=== PATIENT | female | born 1980 | race Caucasian/White ===

== ENCOUNTER 2023-08-09 20:03 | Outpatient (REF) | payer BC, SELFPAY ==
[2023-08-15 14:09] LABS: Age Gdln ACOG Testing Note (.); HPV Aptima Negative (Negative); IGP, Aptima HPV, rfx 16/18,45 Note (.)
== END 2023-08-09 20:04 | disposition home or self-care (01) ==
LOC: LAB 20:03
PROVIDERS: Visit Provider Physician Assistant
DX: Z01.419 Encounter for gynecological examination (general) (routine) without abnormal findings (principal)
CPT/HCPCS: 87624; G0145

== ENCOUNTER 2024-08-11 22:06 | Outpatient (REF) | payer OTHER, SELFPAY ==
--- OUTSIDE RECORDS SUMMARY | 2024-08-11 22:11 | XMS_ITS | CCD ---
Author Organization [facility] Care Team Providers Care Laborer Concrete Plant Name Role Phone HELEN, DR BURNS Admitting Unavailable HELEN, DR BURNS Attending Unavailable HELEN, DR BURNS Consulting Unavailable HELEN, DR BURNS Admitting Unavailable HELEN, DR BURNS Attending Unavailable SKIE, GASTON Admitting Unavailable SKIE, GASTON Attending Unavailable SKIE, GASTON Attending Unavailable SKIE, GASTON Attending Unavailable SKIE, GASTON Attending Unavailable SKIE, GASTON Attending Unavailable Defrance Junior FISH Primary Care Provider Junior Quintanilla MD Primary Care Provider JUNIOR QUINTANILLA Referring Unavailable DEFRANCE, JUNIOR Chatterjee Primary Care Unavailable RAMBASEK, ABY Contreras Referring Unavailable DEFRANCE, JUNIOR Chatterjee Primary Care Unavailable DEFRANCE, JUNIOR Chatterjee Referring Unavailable DEFRANCE, JUNIOR Chatterjee Primary Care Unavailable SALMONKIYA WATT Referring Unavailable DEFRANCE, JUNIOR Chatterjee Primary Care Unavailable DEFRANCE, JUNIOR Chatterjee Primary Care Unavailable CANCINOCRICKET Giles Attending Unavailable EMILBASEKABY Referring Unavailable DEFRANCEJUNIOR Primary Care Unavailable DEFRANCEJUNIOR Referring Unavailable DEFRANCE, JUNIOR Chatterjee Primary Care Unavailable RAMBASEK, ABY Contreras Referring Unavailable DEFRANCE, JUNIOR Chatterjee Primary Care Unavailable DEFRANCEJUNIOR Referring Unavailable DEFRANCE, JUNIOR Chatterjee Primary Care Unavailable DEFRANCE, JUNIOR Chatterjee Referring Unavailable DEFRANCE, JUNIOR Chatterjee Primary Care Unavailable RAMBASEK, ABY Contreras Referring Unavailable DEFRANCE, JUNIOR Chatterjee Primary Care Unavailable RAMBASEK, ABY Contreras Referring Unavailable DEFRANCE, JUNIOR Chatterjee Primary Care Unavailable RAMBASEK, ABY Contreras Referring Unavailable DEFRANCE, JUNIOR Chatterjee Primary Care Unavailable RAMBASEK, ABY Contreras Referring Unavailable DEFRANCE, JUNIOR Chatterjee Primary Care Unavailable RAMBASEK, ABY Contreras Referring Unavailable DEFRANCE, JUNIOR Chatterjee Primary Care Unavailable RAMBASEK, ABY Contreras Referring Unavailable DEFRANCE, JUNIOR Chatterjee Primary Care Unavailable Defrance Junior FISH Primary Care Provider [phone] YESSI, JUNIOR Chatterjee Attending Unavailable DEFRANCE, JUNIOR Chatterjee Referring Unavailable DEFRANCE, JUNIOR Chatterjee Primary Care Unavailable YOLY, REHAB Attending Unavailable DEFRANCE, JUNIOR Chatterjee Referring Unavailable DEFRANCE, JUNIOR Chatterjee Primary Care Unavailable DEFRANCE, JUNIOR Chatterjee Attending Unavailable DEFRANCE, JUNIOR Chatterjee Referring Unavailable DEFRANCE, JUNIOR Chatterjee Primary Care Unavailable DEFRANCE, JUNIOR Chatterjee Attending Unavailable DEFRANCE, JUNIOR Chatterjee Referring Unavailable DEFRANCE, JUNIOR Chatterjee Primary Care Unavailable DEFRANCE, JUNIOR Chatterjee Attending Unavailable DEFRANCE, JUNIOR Chatterjee Referring Unavailable DEFRANCE, JUNIOR Chatterjee Primary Care Unavailable WEDNI SKAGGS Attending Unavailable DEFRANCE, JUNIOR Chatterjee Referring Unavailable DEFRANCE, JUNIOR Chatterjee Primary Care Unavailable KIYA SALMON Attending Unavailable DEFRANCE, JUNIOR Chatterjee Referring Unavailable DEFRANCE, JUNIOR Chatterjee Primary Care Unavailable DEFRANCE, JUNIOR Chatterjee Attending Unavailable DEFRANCE, JUNIOR Chatterjee Referring Unavailable DEFRANCE, JUNIOR Chatterjee Primary Care Unavailable RAMBASEK, ABY Contreras Attending Unavailable RICKLEILA Attending Unavailable RAMBASEK, ABY Contreras Attending Unavailable RAMBASEK, ABY Contreras Attending Unavailable RAMBASEK, ABY Contreras Attending Unavailable RAMBASEK, ABY Contreras Attending Unavailable RAMBASEK, ABY Contrreas Attending Unavailable RAMBASEK, ABY Contreras Attending Unavailable RAMBASEK, ABY Contreras Attending Unavailable RAMBASEK, ABY Contreras Attending Unavailable Allergies Allergy Classification Reported Allergen(s) Allergy Type Date of Onset Reaction(s) Facility (14 sources) penicillAMINE; Translations: [PENICILLAMINE] Drug Allergy 2 Unknown [facility] Repository (1 source) penicillAMINE; Translations: [PENICILLAMINE (BULK)] Drug Allergy 2 [facility] Repository (15 sources) Penicillins; Translations: [PENICILLINS] Drug Intolerance 6 Unknown [facility] (4 sources) Penicillins Propensity to adverse reactions to drug 6 [facility] Medications Current Medications Medication Drug Class(es) Dates Sig (Normalized) Sig (Original) cefdinir 300 mg oral capsule (1 source) Cephalosporin Antibacterial Start: 07-11-2023 End: 07-31-2023 take 1 capsule by mouth in the morning, then take 1 capsule by mouth at bedtime cefDINIR (OMNICEF) 300 mg capsule Take 1 capsule (300 mg total) by mouth in the morning and 1 capsule (300 mg total) before bedtime. Do all this for 20 days. 20 capsule 1 07/11/2023 07/31/2023 Active cetirizine hydrochloride 10 mg oral tablet (17 sources) Histamine-1 Receptor Antagonist Start: 11-12-2023 take 1 tablet by mouth in the morning, then take 1 tablet by mouth at bedtime cetirizine (ZyrTEC) 10 mg tablet Take 1 tablet (10 mg total) by mouth in the morning and 1 tablet (10 mg total) before bedtime. 60 tablet 5 11/12/2023 Active Start: 12-26-2022 take 2 tablets by mo uth in the morning cetirizine (ZyrTEC) 10 MG tablet Indications: Chronic idiopathic urticaria Take 2 tablets (20 mg) by mouth in the morning and 2 tablets (20 mg) before bedtime. 120 tablet 11 07/19/2023 Active cycloSPORINE 25 mg oral capsule (19 sources) Calcineurin Inhibitor Immunosuppressant Start: 07-12-2023 End: 08-08-2023 take 3 capsules by mouth once daily in the morning cycloSPORINE modified (NEOral) 25 MG capsule Indications: Chronic idiopathic urticaria , Encounter for fdc current cyclosporin A therapy take 3 capsules by mouth every morning then 3 capsules BEFORE BEDTIME 84 capsule 1 08/08/2023 Active Start: 06-19-2023 take 2 capsules by m outh in the morning, then take 2 capsules by mouth at bedtime cycloSPORINE modified (NEORAL) 25 mg capsule Take 2 capsules (50 mg total) by mouth in the morning and 2 capsules (50 mg total) before bedtime. 06/19/2023 Active Start: 12-30-2022 End: 06-16-2024 take 1 capsule by mouth once daily cycloSPORINE (SandIMMUNE) 25 MG capsule Indications: Chronic idiopathic urticaria Take 1 capsule (25 mg) by mouth Daily 16 capsule 06/16/2024 Active [id number] 0.3 ml EPINEPHrine 1 mg/ml auto-injector (15 sources) alpha-Adrenergic Agonist, beta-Adrenergic Agonist, Catecholamine Start: 10-05-2023 EPINEPHrine (EPIP EN) 0.3 mg/0.3 mL auto-injector Indications: Chronic idiopathic urticaria Inject 0.3 mL (0.3 mg total) into the appropriate muscle as needed (anaphylaxis). 2 each 1 10/05/2023 Active Start: 12-26-2022 inject 0.3 mg by int ramuscular injection every twenty-four hours as needed EPINEPHrine (Epipen) 0.3 MG/0.3ML injection syringe Inject 0.3 mg into the shoulder, thigh, or buttocks Daily as needed 12/26/2022 Active Start: 12-26-2022 End: 10-02-2023 EPINEPHrine (EPIPEN) 0.3 mg/ 0.3 mL auto-injector Indications: Chronic idiopathic urticaria Inject 0.3 mL (0.3 mg total) into the appropriate muscle as needed (anaphylaxis). 2 each 1 12/26/2022 10/02/2023 Discontinued (Reorder) famotidine 20 mg oral tablet (10 sources) Histamine-2 Receptor Antagonist Start: 11-12-2023 take 1 tablet by mouth in the morning, then take 1 tablet by mouth at bedtime famotidine (PEPCID) 20 mg tablet Take 1 tablet (20 mg total) by mouth in the morning and 1 tablet (20 mg total) before bedtime. 60 tablet 1 11/12/2023 Active Start: 10-31-2023 End: 10-30-2024 take 2 tablets by mouth in the morning famotidine (Pepcid AC) 10 MG tablet Indications: Gastroesophageal reflux disease without esophagitis Take 2 tablets (20 mg) by mouth in the morning and 2 tablets (20 mg) before bedtime. 120 tablet 11 10/31/2023 10/30/2024 Active Start: 12-15-2022 End: 07-11-2023 take 1 tablet by mouth in the morning, then take 1 tablet by mouth at bedtime famotidine (PEPCID) 20 mg tablet Indications: Chronic idiopathic urticaria Take 1 tablet (20 mg total) by mouth in the morning and 1 tablet (20 mg total) before bedtime. 180 tablet 1 12/15/2022 07/11/2023 Discontinued (Alternate therapy) hydrOXYzine pamoate 25 mg oral capsule (9 sources) Antihistamine Start: 10-31-2023 take 1 capsule by mouth every six hours hydrOXYzine pamoate (Vistaril) 25 MG capsule Indications: Chronic idiopathic urticaria Take 1 capsule (25 mg) by mouth every 6 (six) hours if needed for itching for up to 10 days 30 capsule 10/31/2023 Active End: 05-23-2024 take 1 tablet by mouth three times daily as needed hydrOXYzine (ATARAX) 25 mg tablet Take 1 tablet (25 mg total) by mouth 3 (three) times a day as needed for itching. 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 90 tablet 3 02/25/2024 Active Start: 09-04-2023 take 1 tablet by alejandra th in the morning levothyroxine (SYNTHROID, LEVOTHROID) 25 MCG tablet Indications: Randolph's disease Take 1 tablet (25 mcg total) by mouth in the morning. 30 tablet 11 09/04/2023 Active 1 ml medroxyPROGESTERone acetate 150 mg/ml injection (20 sources) Progestin Start: 02-01-2024 End: 07-18-2024 inject 1 dose by intramuscular injection once 150 mg, Intramuscular, at 150 mL/hr, Administer over 84 Days, Once, On Sun02/01/24 at 0945, For 1 dose Start: 08-01-2023 End: 04-25-2025 medroxyPROGESTERone (Depo-Pr overa) 150 MG/ML injection Indications: Depo-Provera contraceptive status Inject 1 mL (150 mg) into the shoulder, thigh, or buttocks every 3 (three) months 1 mL 3 04/25/2024 04/25/2025 Active Start: 12-29-2022 End: 07-18-2024 medroxyPROGESTERone (Depo-Pr overa) injection 150 mg Start: 06-26-2017 medroxyPROGEST ERone (DEPO-PROVERA) 150 mg/mL syringe 0 06/26/2017 Active 1 ml omalizumab 150 mg/ml prefilled syringe (17 sources) Anti-IgE Start: 12-25-2023 omalizumab (XO LAIR) 150 mg/mL syringe Indications: Chronic idiopathic urticaria INJECT 2 SYRINGES UNDER THE SKIN EVERY 4 WEEKS 2 mL 11 12/25/2023 Active Start: 12-26-2022 omalizumab (Xo lair) 150 MG/ML injection Inject 300 mg under the skin every 28 (twenty-eight) days. 12/26/2022 Active Start: 12-26-2022 ondansetron 4 mg disintegrating oral tablet (1 source) Serotonin-3 Receptor Antagonist Start: 01-15-2024 take 1 tablet by mouth every eight hours as needed for nausea and vomiting ondansetron ODT (ZOFRAN ODT) 4 mg disintegrating tablet Dissolve 1 tablet (4 mg total) on tongue every 8 (eight) hours as needed for nausea or vomiting. 10 tablet 1 01/15/2024 Active potassium chloride 20 meq powder for oral solution (1 source) Start: 11-12-2023 take 1 dose by mouth in the morning potassium chloride (KLOR-CON) 20 mEq packet Take 1 packet (20 mEq total) by mouth in the morning and 1 packet (20 mEq total) before bedtime. 60 packet 5 11/12/2023 Active sertraline 100 mg oral tablet (1 source) Serotonin Reuptake Inhibitor Start: 01-15-2024 take 1 tablet by mouth in the morning sertraline (ZOLOFT) 100 mg tablet Take 1 tablet (100 mg total) by mouth in the morning. 30 tablet 11 01/15/2024 Active valACYclovir 500 mg oral tablet (17 sources) Herpesvirus Nucleoside Analog DNA Polymerase Inhibitor, Herpes Simplex Virus Nucleoside Analog DNA Polymerase Inhibitor, Herpes Zoster Virus Nucleoside Analog DNA Polymerase Inhibitor Start: 08-01-2023 End: 07-31-2024 take 1 tablet by mouth in the morning valACYclovir (Valtrex) 500 MG tablet Indications: Herpes, vulvar Take 1 tablet (500 mg) by mouth in the morning. 30 tablet 11 08/01/2023 07/31/2024 Active valACYclovir (VA LTREX) 500 mg tablet Take 1 tablet (500 mg total) by mouth as needed. 0 Active Completed/Discontinued Medications Medication Drug Class(es) Dates Sig (Normalized) Sig (Original) 12 hr buPROPion hydrochloride 150 mg extended release oral tablet (1 source) Aminoketone Start: 06-27-2022 End: 07-11-2023 take 1 tablet by mouth every twelve hours in the morning, then take 1 tablet by mouth at bedtime buPROPion SR (WELLBUTRIN SR) 150 mg 12 hr tablet Take 1 tablet (150 mg total) by mouth in the morning and 1 tablet (150 mg total) before bedtime. 180 tablet 3 06/27/2022 07/11/2023 Discontinued (Alternate therapy) montelukast 10 mg oral tablet (1 source) Leukotriene Receptor Antagonist Start: 12-15-2022 End: 07-11-2023 take 1 tablet by mouth once daily montelukast (SINGULAIR) 10 mg tablet Indications: Chronic idiopathic urticaria Take 1 tablet (10 mg total) by mouth nightly. 90 tablet 1 12/15/2022 07/11/2023 Discontinued (Alternate therapy) Problems Active Problems Problem Classification Problem Date Documented Date Episodic/Chronic Allergic reactions (12 sources) Chronic idiopathic urticaria; Translations: [Idiopathic urticaria] Onset: 07-11-2023 08-02-2023 Episodic Anxiety disorders (4 sources) Anxiety; Translations: [Anxiety disorder, unspecified] Onset: 11-11-2023 05-23-2024 Chronic Conditions associated with dizziness or vertigo (1 source) Conditions associated with dizziness or vertigo Onset: 11-11-2023 Contraceptive and procreative management (3 sources) Contraception ; Translations: [Encounter for surveillance of injectable contraceptive] 04-25-2024 Episodic Immunizations and screening for infectious disease (1 source) Encounter for screening for human papillomavirus (HPV); Translations: [ENC SCREENING HUMAN PAPILLOMAVIRUS] Onset: 07-09-2022 Episodic Other aftercare (1 source) Drug therapy status; Translations: [Encounter for fdc current cyclosporin A therapy] 08-07-2023 Episodic Other injuries and conditions due to external causes (2 sources) Other specified injuries of right wrist, hand and finger(s), subsequent encounter; Translations: [Other specified injuries of right wrist, hand and finger(s), subsequent encounter] Onset: 08-09-2022 Episodic Other screening for suspected conditions (not mental disorders or infectious disease) (5 sources) Encounter for screening for malignant neoplasm of cervix; Translations: [Patient encounter status] Onset: 07-05-2022 Episodic Thyroid disorders (5 sources) Randolph thyroiditis; Translations: [Autoimmune thyroiditis] Onset: 11-06-2023 09-04-2023 Chronic Unclassified (1 source) Routine Check up Onset: 05-23-2024 Unclassified (1 source) Thyroid Problem Onset: 08-27-2023 Unclassified (1 source) Sinus Problem Onset: 07-11-2023 Past or Other Problems Problem Classification Problem Date Documented Da te Episodic/Chronic Conditions associated with dizziness or vertigo (1 source) Dizziness and giddiness; Translations: [Dizziness and giddiness] Onset: 11-11-2023 Episodic Fluid and electrolyte disorders (1 source) Hypokalemia; Translations: [Hypokalemia] Onset: 11-11-2023 Episodic Mood disorders (4 sources) Mood disorders Onset: 07-11-2023 Resolved: 05-23-2024 07-11-2023 Other aftercare (1 source) Other fdc (current) drug therapy; Translations: [Other fdc (current) drug therapy] Onset: 09-25-2023 Episodic Other ear and sense organ disorders (1 source) Ear problem Onset: 07-11-2023 Episodic Other lower respiratory disease (1 source) Shortness of breath; Translations: [Shortness of breath] Onset: 11-11-2023 Episodic Other non-traumatic joint disorders (2 sources) Other instability, right wrist; Translations: [Other instability, right wrist] Onset: 03-15-2022 Episodic Other upper respiratory disease (2 sources) Dysphonia; Translations: [Dysphonia] Onset: 11-12-2023 Episodic Other upper respiratory disease (1 source) Other diseases of pharynx; Translations: [Other diseases of pharynx] Onset: 11-11-2023 Episodic Other upper respiratory disease (2 sources) Dysphonia; Translations: [Dysphonia] Onset: 12-10-2023 05-23-2024 Episodic Other upper respiratory infections (2 sources) Other acute sinusitis; Translations: [Acute sinusitis] Onset: 07-11-2023 07-11-2023 Episodic Otitis media and related conditions (2 sources) Acute and subacute allergic otitis media (mucoid) (sanguinous) (serous), right ear; Translations: [Acute mucoid otitis media] Onset: 07-11-2023 07-11-2023 Episodic Spondylosis; intervertebral disc disorders; other back problems (2 sources) Cervicalgia; Translations: [Cervicalgia] Onset: 11-12-2023 Episodic Unclassified (4 sources) Onset: 12-26-2018 12-26-2018 Results Test Name Value Interpretation Reference Range Facility HCG ( test) Ql (U)o n 04-25-2024 Interpretation and review of laboratory results Normal [facility] Preg Test, Ur Negative [facility] COMPREHENSIVE METABOLIC PANE Salazar 04-18-2024 Albumin [Mass/Vol] 4.3 g/dL Normal 3.2-5.3 [facility] Comment on above: Performed By: #### Felisa SHIN, #### [facility] ([id number]) [address] [facility] [address] [place] [address] #### 3520-4 #### [facility] ([id number]) [address] [place] [address]645 ALP [Catalytic activity/Vol] 55 U/L Normal 39-130 [facility] Comment on above: Performed By: #### Felisa SHIN, #### [facility] ([id number]) [address] [facility] [address] [place] [address] #### 3520-4 #### [facility] ([id number]) [address] [place] [address] 37540 ALT [Catalytic activity/Vol] 13 U/L Normal 0-31 [facility] Comment on above: Performed By: #### Felisa SHIN, #### [facility] ([id number]) [address] [place] [address] [address] [place] [address] #### 3520-4 #### [facility] ([id number]) [address] [place] [address] 25551 Anion gap [Moles/Vol] 10 mmol/L Normal 5-15 [facility] Comment on above: Performed By: #### Felisa SHIN, 68418-4 #### [facility] ([id number]) [address] [place] [address] [address] [place] [address] #### 3520-4 #### [facility] ([id number]) [address] [place] [address] 14902 AST [Catalytic activity/Vol] 17 U/L Normal 0-41 [facility] Comment on above: Performed By: #### Felisa SHIN, 17581-3 #### [facility] ([id number]) [address] [facility], [address] [place] [address] #### 3520-4 #### [facility] ([id number]) [address] [place] [address] 72968 Bilirubin [Mass/Vol] 0.5 mg/dL Normal 0.3-1.2 [facility] Comment on above: Performed By: #### Felisa SHIN, 21682-0 #### [facility] ([id number]) [address] [facility], [address] [place] [address] #### 3520-4 #### [facility] ([id number]) [address] [place] [address] 22501 Calcium [Mass/Vol] 9.1 mg/dL Normal 8.5-10.5 [facility] Comment on above: Performed By: #### Felisa SHIN, 68133-3 #### [facility] ([id number]) [address] [facility], [address] [place] [address] #### 3520-4 #### [facility] ([id number]) [address] [place] [address] 38781 Chloride [Moles/Vol] 108 mmol/L Normal 98-109 [facility] Comment on above: Performed By: #### Felisa SHIN, 43357-0 #### [facility] ([id number]) [address] [facility], [address] [place] [address] #### 3520-4 #### [facility] ([id number]) [address] [place] [address] CO2 [Moles/Vol] 25 mmol/L Normal 22-32 [facility] Comment on above: Performed By: #### Felisa SHIN, 44506-1 #### [facility] ([id number]) [address], [address] [place] [address] #### 3520-4 #### [facility] ([id number]) [address] [place] [address]245 Creatinine [Mass/Vol] 0.76 mg/dL Normal 0.40-1.00 [facility] Comment on above: Result Comment: METH OD TRACEABLE TO IDMS STANDARD Performed By: #### Felisa SHIN, #### [facility] ([id number]) [address] [facility], [address] [place] [address] #### 3520-4 #### [facility] ([id number]) [address] [place] [address] 29647 eGFR (CKD-EPI) NON-RACE DEPENDENT >90 Normal >59 [facility] Comment on above: Result Comment: Reported eGFR is based on the CKD-EPI 2020 equation that does not use a race coefficient. Performed By: #### Felisa SHIN, #### [facility] ([id number]) [address] [facility], [address] [place] [address] #### 3520-4 #### [facility] ([id number]) [address] [place] [address] 42220 Glucose [Mass/Vol] 75 mg/dL Normal 65-99 [facility] Comment on above: Performed By: #### Felisa SHIN, 65231-7 #### [facility] ([id number]) [address], [address] [place] [address] #### 3520-4 #### [facility] ([id number]) [address] [place] [address] 21496 Potassium [Moles/Vol] 3.4 mmol/L Low 3.5-5.0 [facility] Comment on above: Performed By: #### Felisa SHIN, 85285-2 #### [facility] ([id number]) [address], [address] [place] [address] #### 3520-4 #### [facility] ([id number]) [address] [place] [address] 76630 Protein [Mass/Vol] 6.5 g/dL Normal 6.0-8.0 [facility] Comment on above: Performed By: #### Felisa SHIN, #### [facility] ([id number]) [address] [facility], [address] [place] [address] #### 3520-4 #### [facility] ([id number]) [address] [place] [address] 55182 Sodium [Moles/Vol] 143 mmol/L Normal 134-146 [facility] Comment on above: Performed By: #### Felisa SHIN, #### [facility] ([id number]) [address] [facility], [address] [place] [address] #### 3520-4 #### [facility] ([id number]) [address] [place] [address] 66356 Urea nitrogen [Mass/Vol] 15 mg/dL Normal 5-23 [facility] Comment on above: Performed By: #### Felisa SHIN, #### [facility] ([id number]) [address], [address] [place] [address] #### 3520-4 #### [facility] ([id number]) [address] [place] [address]71 COMPREHENSIVE METABOLIC PANE Salazar 02-15-2024 Albumin [Mass/Vol] 4.4 g/dL Normal 3.2-5.3 [facility] Comment on above: Performed By: #### C KIP, 02644-6 #### [facility] ([id number]) [address], [address] [place] [address] #### 3520-4 #### [facility] ([id number]) [address] [place] [address] 73964 ALP [Catalytic activity/Vol] 52 U/L Normal 39-130 [facility] Comment on above: Performed By: #### Felisa SHIN, 08948-3 #### [facility] ([id number]) [address] [facility], [address] [place] [address] #### 3520-4 #### [facility] ([id number]) [address] [place] [address] 13318 ALT [Catalytic activity/Vol] 29 U/L Normal 0-31 [facility] Comment on above: Performed By: #### Felisa SHIN, 95955-3 #### [facility] ([id number]) [address] [facility], [address] [place] [address] #### 3520-4 #### [facility] ([id number]) [address] [place] [address] 21071 Anion gap [Moles/Vol] 11 mmol/L Normal 5-15 [facility] Comment on above: Performed By: #### Felisa SHIN, 02412-8 #### [facility] ([id number]) [address] [place] [address] #### 3520-4 #### [facility] ([id number]) [address] [place] [address] 29655 AST [Catalytic activity/Vol] 26 U/L Normal 0-41 [facility] Comment on above: Performed By: #### Felisa SHIN, 18777-9 #### [facility] ([id number]) [address] [facility], [address] [place] [address] #### 3520-4 #### [facility] ([id number]) [address] [place] [address] 50393 Bilirubin [Mass/Vol] 0.6 mg/dL Normal 0.3-1.2 [facility] Comment on above: Performed By: #### Felisa SHIN, 61934-3 #### [facility] ([id number]) [address] [facility], [address] [place] [address] #### 3520-4 #### [facility] ([id number]) [address] [place] [address] 44027 Calcium [Mass/Vol] 9.4 mg/dL Normal 8.5-10.5 [facility] Comment on above: Performed By: #### Felisa SHIN, #### [facility] ([id number]) [address] [facility], [address] [place] [address] #### 3520-4 #### [facility] ([id number]) [address] [place] [address] 72336 Chloride [Moles/Vol] 108 mmol/L Normal 98-109 [facility] Comment on above: Performed By: #### Felisa SHIN, #### [facility] ([id number]) [address] [facility] [facility], [address] [place] [address] #### 3520-4 #### [facility] ([id number]) [address] [place] [address] 38075 CO2 [Moles/Vol] 22 mmol/L Normal 22-32 [facility] Comment on above: Performed By: #### Felisa SHIN, #### [facility] ([id number]) [address] [facility], [address] [place] [address] #### 3520-4 #### [facility] ([id number]) [address] [place] [address] 37098 Creatinine [Mass/Vol] 0.88 mg/dL Normal 0.40-1.00 [facility] Comment on above: Result Comment: METH OD TRACEABLE TO IDMS STANDARD Performed By: #### C KIP, 49744-3 #### [facility] ([id number]) [address] [facility], [address] [place] [address] #### 3520-4 #### [facility] ([id number]) [address] [place] [address] 85825 GFR/1.73 sq M.predicted among non-blacks MDRD (S/P/Bld) [Vol rate/Area] 84 mL/min/{1.73_m2} Normal >59 [facility] Comment on above: Result Comment: Reported eGFR is based on the CKD-EPI 2020 equation that does not use a race coefficient. Performed By: #### C KIP, #### [facility] ([id number]) [address] [place] [address], [address] [place] [address] #### 3520-4 #### [facility] ([id number]) [address] [place] [address] 24848 Glucose [Mass/Vol] 99 mg/dL Normal 65-99 [facility] Comment on above: Performed By: #### Felisa SHIN, #### [facility] ([id number]) [address] [facility], [address] [place] [address] #### 3520-4 #### [facility] ([id number]) [address] [place] [address] 26956 Potassium [Moles/Vol] 3.4 mmol/L Low 3.5-5.0 [facility] Comment on above: Performed By: #### Felisa SHIN, #### [facility] ([id number]) [address] [facility], [address] [place] [address] #### 3520-4 #### [facility] ([id number]) [address] [place] [address] 97502 Protein [Mass/Vol] 6.8 g/dL Normal 6.0-8.0 [facility] Comment on above: Performed By: #### Felisa SHIN, 00948-2 #### [facility] ([id number]) [address] [facility], [address] [place] [address] #### 3520-4 #### [facility] ([id number]) [address] [place] [address] 86642 Sodium [Moles/Vol] 141 mmol/L Normal 134-146 [facility] Comment on above: Performed By: #### Felisa SHIN, 59974-7 #### [facility] ([id number]) [address] [facility], [address] [place] [address] #### 3520-4 #### [facility] ([id number]) [address] [place] [address] 15114 Urea nitrogen [Mass/Vol] 12 mg/dL Normal 5-23 [facility] Comment on above: Performed By: #### Felisa SHIN, 84645-7 #### [facility] ([id number]) [address] [facility] [facility], [address] [place] [address] #### 3520-4 #### [facility] ([id number]) [address] [place] [address] 59009 MAGNESIUMon 02-15-2024 Magnesium [Mass/Vol] 2.1 mg/dL Normal 1.8-2.6 [facility] Comment on above: Performed By: #### Felisa SHIN, 84988-1 #### [facility] ([id number]) [address] [place] [address], [address] [place] [address] #### 3520-4 #### [facility] ([id number]) [address] [place] [address] 06139 cycloSPORINE (Bld) [Mass/Vol ]on 02-15-2024 Cyclosporine, B <25 Low 100 - 400 (Trough) [facility] Comment on above: Result Comment: NOTE ADDITIONAL INFORMATION Target steady-state trough concentrations vary depending on the type of transplant, concomitant immunosuppression, clinical/institutional protocols, and time post-transplant. Results should be interpreted in conjunction with this clinical information and any physical signs/symptoms of rejection/toxicity. Testing performed by Liquid Chromatography-Tandem Mass Spectrometry (LC-MS/MS). This test was developed and its performance characteristics determined by [facility] in a manner consistent with CLIA requirements. This test has not been cleared or approved by the U.S. Food and Drug Administration. Test Performed by: [place] [address] Office Machinery Or Equipment Installer: Angelina Daily Ph.D.; CLIA# [id number] Performed By: #### Felisa SHIN, 24897-6 #### [facility] ([id number]) [address] [place] [address], [address] [place] [address] #### 3520-4 #### [facility] ([id number]) [address] [place] [address] 35513 COMPREHENSIVE METABOLIC PANE Salazar 01-18-2024 Albumin [Mass/Vol] 4.3 g/dL Normal 3.2-5.3 [facility] Comment on above: Performed By: #### Felisa SHIN, 74587-3 #### [facility] ([id number]) [address] [place] [address], [address] [place] [address] #### 3520-4 #### [facility] ([id number]) [address] [place] [address] 88161 ALP [Catalytic activity/Vol] 59 U/L Normal 39-130 [facility] Comment on above: Performed By: #### Felisa SHIN, 13402-4 #### [facility] ([id number]) [address] [address] #### 3520-4 #### [facility] ([id number]) [address] [place] [address] 75008 ALT [Catalytic activity/Vol] 22 U/L Normal 0-31 [facility] Comment on above: Performed By: #### Felisa SHIN, #### [facility] ([id number]) [address] [address] #### 3520-4 #### [facility] ([id number]) [address] [place] [address] 87972 Anion gap [Moles/Vol] 9 mmol/L Normal 5-15 [facility] Comment on above: Performed By: #### Felisa SHIN, 07875-8 #### [facility] ([id number]) [address] [place] [address] #### 3520-4 #### [facility] ([id number]) [address] [place] [address] 15035 AST [Catalytic activity/Vol] 20 U/L Normal 0-41 [facility] Comment on above: Performed By: #### Felisa SHIN, 86532-7 #### [facility] ([id number]) [address] [place] [address] #### 3520-4 #### [facility] ([id number]) [address] [place] [address] 08114 Bilirubin [Mass/Vol] 0.4 mg/dL Normal 0.3-1.2 [facility] Comment on above: Performed By: #### C MP, 34984-1 #### [facility] ([id number]) [address] [facility], [address] [place] [address] #### 3520-4 #### [facility] ([id number]) [address] [place] [address] 49152 Calcium [Mass/Vol] 9.4 mg/dL Normal 8.5-10.5 [facility] Comment on above: Performed By: #### Felisa SHIN, 68588-0 #### [facility] ([id number]) [address] [facility], [address] [place] [address] #### 3520-4 #### [facility] ([id number]) [address] [place] [address] 18756 Chloride [Moles/Vol] 108 mmol/L Normal 98-109 [facility] Comment on above: Performed By: #### Felisa SHIN, 29874-3 #### [facility] ([id number]) [address] [facility] [facility], [address] [place] [address] #### 3520-4 #### [facility] ([id number]) [address] [place] [address] 42000 CO2 [Moles/Vol] 26 mmol/L Normal 22-32 [facility] Comment on above: Performed By: #### Felisa SHIN, 92323-8 #### [facility] ([id number]) [address] [facility], [address] [facility] [address] #### 3520-4 #### [facility] ([id number]) [address] [place] [address] 51417 Creatinine [Mass/Vol] 0.68 mg/dL Normal 0.40-1.00 [facility] Comment on above: Result Comment: METH OD TRACEABLE TO IDMS STANDARD Performed By: #### Felisa SHIN, #### [facility] ([id number]) [address] [facility], [address] [place] [address] #### 3520-4 #### [facility] ([id number]) [address] [place] [address] 80593 eGFR (CKD-EPI) NON-RACE DEPENDENT >90 Normal >59 [facility] Comment on above: Result Comment: Reported eGFR is based on the CKD-EPI 2020 equation that does not use a race coefficient. Performed By: #### Felisa SHIN, 76371-3 #### [facility] ([id number]) [address] [facility] [facility], [address] [place] [address] #### 3520-4 #### [facility] ([id number]) [address] [place] [address] 69915 Glucose [Mass/Vol] 69 mg/dL Normal 65-99 [facility] Comment on above: Performed By: #### Felisa SHIN, 01412-9 #### [facility] ([id number]) [address] [facility], [address] [place] [address] #### 3520-4 #### [facility] ([id number]) [address] [place] [address] 84015 Potassium [Moles/Vol] 3.6 mmol/L Normal 3.5-5.0 [facility] Comment on above: Performed By: #### Felisa SHIN, 72408-8 #### [facility] ([id number]) [address] [facility] [facility], [address] [place] [address] #### 3520-4 #### [facility] ([id number]) [address] [place] [address] 21516 Protein [Mass/Vol] 6.6 g/dL Normal 6.0-8.0 [facility] Comment on above: Performed By: #### Felisa SHIN, 58490-8 #### [facility] ([id number]) [address] [place] [address], [address] [place] [address] #### 3520-4 #### [facility] ([id number]) [address] [place] [address] 93914 Sodium [Moles/Vol] 143 mmol/L Normal 134-146 [facility] Comment on above: Performed By: #### Felisa SHIN, 29842-5 #### [facility] ([id number]) [address] [place] [address], [address] [place] [address] #### 3520-4 #### [facility] ([id number]) [address] [place] [address] 79383 Urea nitrogen [Mass/Vol] 17 mg/dL Normal 5-23 [facility] Comment on above: Performed By: #### Felisa SHIN, 23372-5 #### [facility] ([id number]) [address] [place] [address], [address] [place] [address] #### 3520-4 #### [facility] ([id number]) [address] [place] [address] 74810 MAGNESIUMon 01-18-2024 Magnesium [Mass/Vol] 2.1 mg/dL Normal 1.8-2.6 [facility] Comment on above: Performed By: #### Felisa SHIN, 36888-9 #### [facility] ([id number]) [address] [place] [address], [address] [place] [address] #### 3520-4 #### [facility] ([id number]) [address] [place] [address] 62275 cycloSPORINE (Bld) [Mass/Vol ]on 01-18-2024 Cyclosporine, B <25 Low 100 - 400 (Trough) [facility] Comment on above: Result Comment: NOTE ADDITIONAL INFORMATION Target steady-state trough concentrations vary depending on the type of transplant, concomitant immunosuppression, clinical/institutional protocols, and time post-transplant. Results should be interpreted in conjunction with this clinical information and any physical signs/symptoms of rejection/toxicity. Testing performed by Liquid Chromatography-Tandem Mass Spectrometry (LC-MS/MS). This test was developed and its performance characteristics determined by [facility] in a manner consistent with CLIA requirements. This test has not been cleared or approved by the U.S. Food and Drug Administration. Test Performed by: [facility] [address] [place] [address] Office Machinery Or Equipment Installer: Angelina Daily Ph.D.; CLIA# [id number] Performed By: #### C KIP, 00052-3 #### [facility] ([id number]) [address] [place] [address] #### 3520-4 #### [facility] ([id number]) [address] [place] [address] 395[address]OL[address] P[address] [facility] 12-21-2023 Albumin [Mass/Vol] 4.4 g/dL Normal 3.2-5.3 [facility] Comment on above: Performed By: #### Felisa SHIN, 30350-5 #### [facility] ([id number]) [address] [place] [address] #### 3520-4 #### [facility] ([id number]) [address] [place] [address] 44365 ALP [Catalytic activity/Vol] 55 U/L Normal 39-130 [facility] Comment on above: Performed By: #### Felisa SHIN, 97133-8 #### [facility] ([id number]) [address] [place] [address] #### 3520-4 #### [facility] ([id number]) [address] [place] [address] 41875 ALT [Catalytic activity/Vol] 22 U/L Normal 0-31 [facility] Comment on above: Performed By: #### Felisa SHIN, 89364-5 #### [facility] ([id number]) [address] [facility], [address] [place] [address] #### 3520-4 #### [facility] ([id number]) [address] [place] [address] 91694 Anion gap [Moles/Vol] 9 mmol/L Normal 5-15 [facility] Comment on above: Performed By: #### C KIP, #### [facility] ([id number]) [address] [facility], [address] [place] [address] #### 3520-4 #### [facility] ([id number]) [address] [place] [address] 16997 AST [Catalytic activity/Vol] 24 U/L Normal 0-41 [facility] Comment on above: Performed By: #### Felisa SHIN, #### [facility] ([id number]) [address] [facility], [address] [place] [address] #### 3520-4 #### [facility] ([id number]) [address] [place] [address] 19502 Bilirubin [Mass/Vol] 0.7 mg/dL Normal 0.3-1.2 [facility] Comment on above: Performed By: #### Felisa SHIN, #### [facility] ([id number]) [address] [facility], [address] [place] [address] #### 3520-4 #### [facility] ([id number]) [address] [place] [address] 03805 Calcium [Mass/Vol] 9.6 mg/dL Normal 8.5-10.5 [facility] Comment on above: Performed By: #### Felisa SHIN, #### [facility] ([id number]) [address] [facility], [address] [place] [address] #### 3520-4 #### [facility] ([id number]) [address] [place] [address] 09339 Chloride [Moles/Vol] 107 mmol/L Normal 98-109 [facility] Comment on above: Performed By: #### Felisa SHIN, 70805-5 #### [facility] ([id number]) [address] [facility], [address] [place] [address] #### 3520-4 #### [facility] ([id number]) [address] [place] [address] 37591 CO2 [Moles/Vol] 25 mmol/L Normal 22-32 [facility] Comment on above: Performed By: #### Felisa SHIN, 84348-7 #### [facility] ([id number]) [address] [place] [address], [address] [place] [address] #### 3520-4 #### [facility] ([id number]) [address] [place] [address] 50798 Creatinine [Mass/Vol] 0.82 mg/dL Normal 0.40-1.00 [facility] Comment on above: Result Comment: METH OD TRACEABLE TO IDMS STANDARD Performed By: #### Felisa SHIN, 07125-9 #### [facility] ([id number]) [address] [place] [address], [address] [place] [address] #### 3520-4 #### [facility] ([id number]) [address] [place] [address] 78215 eGFR (CKD-EPI) NON-RACE DEPENDENT >90 Normal >59 [facility] Comment on above: Result Comment: Reported eGFR is based on the CKD-EPI 2020 equation that does not use a race coefficient. Performed By: #### Felisa SHIN, #### [facility] ([id number]) [address] [facility] [facility], [address] [place] [address] #### 3520-4 #### [facility] ([id number]) [address] [place] [address] 01771 Glucose [Mass/Vol] 87 mg/dL Normal 65-99 [facility] Comment on above: Performed By: #### Felisa SHIN, 44738-0 #### [facility] ([id number]) [address] [facility], [address] [place] [address] #### 3520-4 #### [facility] ([id number]) [address] [place] [address] 09770 Potassium [Moles/Vol] 3.3 mmol/L Low 3.5-5.0 [facility] Comment on above: Performed By: #### Felisa SHIN, 47890-1 #### [facility] ([id number]) [address] [facility], [address] [place] [address] #### 3520-4 #### [facility] ([id number]) [address] [place] [address] 31309 Protein [Mass/Vol] 6.8 g/dL Normal 6.0-8.0 [facility] Comment on above: Performed By: #### Felisa SHIN, #### [facility] ([id number]) [address], [address] [place] [address] #### 3520-4 #### [facility] ([id number]) [address] [place] [address] 86834 Sodium [Moles/Vol] 141 mmol/L Normal 134-146 [facility] Comment on above: Performed By: #### Felisa SHIN, #### [facility] ([id number]) [address] [facility], [address] [place] [address] #### 3520-4 #### [facility] ([id number]) [address] [place] [address] 54635 Urea nitrogen [Mass/Vol] 15 mg/dL Normal 5-23 [facility] Comment on above: Performed By: #### Felisa SHIN, 58808-2 #### [facility] ([id number]) [address] [place] [address], [address] [address] #### 3520-4 #### [facility] ([id number]) [address] [place] [address] Cyclosporineon 12-21-2023 cycloSPORINE (Bld) [Mass/Vol] ng/mL Low 50-500 [facility] Comment on above: Result Comment: NOTE Drug concentration below assay detection limit. Please confirm drug regimen and cancel any standing orders for this drug level if the drug has been discontinued. Reference ranges and high/low indicator flags are provided as general guidelines only. The treating physician must determine appropriate target levels/dosing based on the specific clinical situation. Test performed by chemiluminescent immunoassay using vitalclip. Result rechecked. Test Performed By: [place] [address] Overhead Worker: Gary Ohara III #[id number] Performed By: #### Felsia SHIN, 88061-6 #### [facility] ([id number]) [address] [place] [address], [address] [address] #### 3520-4 #### [facility] ([id number]) [address] [place] [address] 67711 MAGNESIUMon 12-21-2023 Magnesium [Mass/Vol] 2.0 mg/dL Normal 1.8-2.6 [facility] Comment on above: Performed By: #### Felisa SHIN, 15523-0 #### [facility] ([id number]) [address] [place] [address], [address] [place] [address] #### 3520-4 #### [facility] ([id number]) [address] [facility], [place] [address] MR BRAIN W WO CONTon 024 MR BRAIN W WO CONT MR BRAIN W WO CONT EXAM:MR BRAIN W WO CONT INDICATION: Headache, chronic, new features or increased frequency. COMPARISON: None. TECHNIQUE: Multiplanar multisequence pre and post contrast MR sequences through the head/brain. CONTRAST: 16mL ProHance IV. BRAIN FINDINGS: Brain Parenchyma: No acute hemorrhage, cerebral edema, or acute infarction. No mass, mass effect, or midline shift. No cerebellar tonsillar ectopia. No brainstem sag or other secondary signs of intracranial hypotension. No empty sella or other secondary signs of elevated intracranial pressure. Ventricles and Sulci: Normal for age. Extra-Axial Spaces: No extra-axial fluid collection. Intracranial Flow-Voids and enhancement: Arterial and venous sinus flow voids appear normal. Large arachnoid granulation within the left transverse sigmoid junction. Orbits: Paranasal Sinuses: Lobular mucosal thickening left maxillary sinus. Nonaggressive mucosal thickening left frontal sinuses, frontoethmoidal recesses, anterior ethmoid air cells. Mastoid Air Cells: Clear. Cranium: Normal. Extracranial Soft Tissues: Normal. IMPRESSION: No acute or subacute cranial abnormalities. No MRI findings to account for the patient's headaches. Approved by Resident Juvencio Steven MD on 11/30/2023 11:18 AM Nya Bernstein have personally reviewed the image(s) and agree with and/or edited the report Finalized by Nya Maynard on 11/30/2023 12:09 PM Normal [facility] MR CERVICAL SPINE WO CONTon 11-30-2023 MR CERVICAL SPINE WO CONT MR CERVICAL SPINE WO CONT MR CERVICAL SPINE WO CONT 11/30/2023 10:08 AM HISTORY: Neck pain. PROTOCOL: Routine MRI cervical spine obtained without contrast. Multisequence, multiplanar imaging was obtained. COMPARISON: None. FINDINGS: Straightening of usual cervical lordosis. Vertebral body heights preserved. No listhesis. No suspicious marrow replacing process. No epidural collection. Paraspinous musculature is unremarkable. Disc desiccation and mild height loss C4-C5 and C5-C6. No abnormal cord signal alteration. Level by level assessment: At C2-C3: No significant herniation, spinal canal or neural foraminal stenosis. At C3-C4: No significant herniation, spinal canal or neural foraminal stenosis. At C4-C5: Disc desiccation and mild disc height loss. No significant disc herniation, spinal canal and neural foraminal stenosis. At C5-C6: Disc desiccation, mild disc height loss. Right central/subarticular disc protrusion mild effacement of the ventral thecal sac minimal flattening of the ventral cord. At C6-C7: No significant herniation, spinal canal or neural foraminal stenosis. At C7-T1: No significant herniation, spinal canal or neural foraminal stenosis. IMPRESSION: Mild discogenic degenerative changes at C4-C5 and C5-C6 without high-grade neural foraminal or spinal canal stenosis. Small right central and subarticular disc protrusion with mild effacement of the ventral thecal sac. Approved by Resident Juvencio Steven MD on 11/30/2023 11:18 AM INya have personally reviewed the image(s) and agree with and/or edited the report Finalized by Nya Maynard on 11/30/2023 4:21 PM Normal [facility] COMPREHENSIVE METABOLIC PANE Salazar 11-23-2023 Albumin [Mass/Vol] 4.5 g/dL Normal 3.2-5.3 [facility] Comment on above: Performed By: #### C KIP, 37272-8 #### [facility] ([id number]) [address] [facility], [address] [place] [address] #### 3520-4 #### [facility] ([id number]) [address] [place] [address] 88452 ALP [Catalytic activity/Vol] 72 U/L Normal 39-130 [facility] Comment on above: Performed By: #### C KIP, 33111-0 #### [facility] ([id number]) [address] [facility], [address] [place] [address] #### 3520-4 #### [facility] ([id number]) [address] [place] [address] 32852 ALT [Catalytic activity/Vol] 25 U/L Normal 0-31 [facility] Comment on above: Performed By: #### Felisa SHIN, 25795-2 #### [facility] ([id number]) [address] [facility], [address] [place] [address] #### 3520-4 #### [facility] ([id number]) [address] [place] [address] 95482 Anion gap [Moles/Vol] 11 mmol/L Normal 5-15 [facility] Comment on above: Performed By: #### Felisa SHIN, #### [facility] ([id number]) [address] [facility], [address] [place] [address] #### 3520-4 #### [facility] ([id number]) [address] [place] [address] 72379 AST [Catalytic activity/Vol] 22 U/L Normal 0-41 [facility] Comment on above: Performed By: #### Felisa SHIN, #### [facility] ([id number]) [address] [facility], [address] [place] [address] #### 3520-4 #### [facility] ([id number]) [address] [place] [address] 81760 Bilirubin [Mass/Vol] 0.5 mg/dL Normal 0.3-1.2 [facility] Comment on above: Performed By: #### Felisa SHIN, #### [facility] ([id number]) [address] [facility], [address] [place] [address] #### 3520-4 #### [facility] ([id number]) [address] [place] [address] 98512 Calcium [Mass/Vol] 9.6 mg/dL Normal 8.5-10.5 [facility] Comment on above: Performed By: #### Felisa SHIN, 54629-6 #### [facility] ([id number]) [address] [facility], [address] [place] [address] #### 3520-4 #### [facility] ([id number]) [address] [place] [address] 35775 Chloride [Moles/Vol] 106 mmol/L Normal 98-109 [facility] Comment on above: Performed By: #### C KIP, 14129-9 #### [facility] ([id number]) [address] [facility], [address] [place] [address] #### 3520-4 #### [facility] ([id number]) [address] [place] [address] 70910 CO2 [Moles/Vol] 24 mmol/L Normal 22-32 [facility] Comment on above: Performed By: #### Felisa SHIN, 00475-1 #### [facility] ([id number]) [address] [facility], [address] [place] [address] #### 3520-4 #### [facility] ([id number]) [address] [place] [address] 36033 Creatinine [Mass/Vol] 0.81 mg/dL Normal 0.40-1.00 [facility] Comment on above: Result Comment: METH OD TRACEABLE TO IDMS STANDARD Performed By: #### Felisa SHIN, 65737-8 #### [facility] ([id number]) [address] [facility], [address] [place] [address] #### 3520-4 #### [facility] ([id number]) [address] [place] [address] 76489 eGFR (CKD-EPI) NON-RACE DEPENDENT >90 Normal >59 [facility] Comment on above: Result Comment: Reported eGFR is based on the CKD-EPI 2020 equation that does not use a race coefficient. Performed By: #### C KIP, 61632-2 #### [facility] ([id number]) [address] [facility], [address] [place] [address] #### 3520-4 #### [facility] ([id number]) [address] [place] [address] 46388 Glucose [Mass/Vol] 92 mg/dL Normal 65-99 [facility] Comment on above: Performed By: #### C KIP, 03883-7 #### [facility] ([id number]) [address] [facility] [address] [place] [address] #### 3520-4 #### [facility] ([id number]) [address] [place] [address] 64572 Potassium [Moles/Vol] 3.9 mmol/L Normal 3.5-5.0 [facility] Comment on above: Performed By: #### Felisa SHIN, 83495-8 #### [facility] ([id number]) [address] [facility], [address] [place] [address] #### 3520-4 #### [facility] ([id number]) [address] [place] [address] 83191 Protein [Mass/Vol] 7.4 g/dL Normal 6.0-8.0 [facility] Comment on above: Performed By: #### Felisa SHIN, 59121-9 #### [facility] ([id number]) [address] [facility], [address] [place] [address] #### 3520-4 #### [facility] ([id number]) [address] [place] [address] 16391 Sodium [Moles/Vol] 141 mmol/L Normal 134-146 [facility] Comment on above: Performed By: #### Felisa SHIN, 79514-9 #### [facility] ([id number]) [address] [place] [address], [address] [place] [address] #### 3520-4 #### [facility] ([id number]) [address] [place] [address] 22626 Urea nitrogen [Mass/Vol] 17 mg/dL Normal 5-23 [facility] Comment on above: Performed By: #### Felisa SHIN, 45972-8 #### [facility] ([id number]) [address] [facility], [address] [place] [address] #### 3520-4 #### [facility] ([id number]) [address] [place] [address] 78882 Cyclosporineon 11-23-2023 cycloSPORINE (Bld) [Mass/Vol] ng/mL Low 50-500 [facility] Comment on above: Result Comment: NOTE Drug concentration below assay detection limit. Please confirm drug regimen and cancel any standing orders for this drug level if the drug has been discontinued. Reference ranges and high/low indicator flags are provided as general guidelines only. The treating physician must determine appropriate target levels/dosing based on the specific clinical situation. Test performed by chemiluminescent immunoassay using vitalclip. Result rechecked. Test Performed By: [facility] [employer] [address] [place] [address] Overhead Worker: Gary Ohara III #[id number] Performed By: #### Felisa SHIN, 14785-1 #### [facility] ([id number]) [address] [facility], [address] [place] [address] #### 3520-4 #### [facility] ([id number]) [address] [place] [address] 78803 MAGNESIUMon 11-23-2023 Magnesium [Mass/Vol] 2.1 mg/dL Normal 1.8-2.6 [facility] Comment on above: Performed By: #### Felisa SHIN, 85300-9 #### [facility] ([id number]) [address] [facility], [address] [place] [address] #### 3520-4 #### [facility] ([id number]) [address] [place] [address] 03282 BASIC METABOLIC PANLon 11-11 Anion gap [Moles/Vol] 10 mmol/L Normal 5-15 [facility] Comment on above: Performed By: #### Felisa SHIN, 99612-5 #### [facility] ([id number]) [address] [facility], [address] [place] [address] #### 3520-4 #### [facility] ([id number]) [address] [place] [address] 42111 Calcium [Mass/Vol] 9.3 mg/dL Normal 8.5-10.5 [facility] Comment on above: Performed By: #### Felisa SHIN, 82690-0 #### [facility] ([id number]) [address] [facility], [address] [place] [address] #### 3520-4 #### [facility] ([id number]) [address] [place] [address] 42454 Chloride [Moles/Vol] 107 mmol/L Normal 98-109 [facility] Comment on above: Performed By: #### Felisa SHIN, 69660-3 #### [facility] ([id number]) [address] [place] [address] #### 3520-4 #### [facility] ([id number]) [address] [place] [address] 74707 CO2 [Moles/Vol] 21 mmol/L Low 22-32 [facility] Comment on above: Performed By: #### Felisa SHIN, 88052-6 #### [facility] ([id number]) [address] [facility], [address] [place] [address] #### 3520-4 #### [facility] ([id number]) [address] [place] [address] 73046 Creatinine [Mass/Vol] 0.89 mg/dL Normal 0.40-1.00 [facility] Comment on above: Result Comment: METH OD TRACEABLE TO IDMS STANDARD Performed By: #### C KIP, 05873-5 #### [facility] ([id number]) [address] [facility], [address] [place] [address] #### 3520-4 #### [facility] ([id number]) [address] [place] [address] 10792 GFR/1.73 sq M.predicted among non-blacks MDRD (S/P/Bld) [Vol rate/Area] 83 mL/min/{1.73_m2} Normal >59 [facility] Comment on above: Result Comment: Reported eGFR is based on the CKD-EPI 2020 equation that does not use a race coefficient. Performed By: #### C KIP, #### [facility] ([id number]) [address] [facility], [address] [place] [address] #### 3520-4 #### [facility] ([id number]) [address] [place] [address] 75602 Glucose [Mass/Vol] 99 mg/dL Normal 65-99 [facility] Comment on above: Performed By: #### Felisa SHIN, 11522-0 #### [facility] ([id number]) [address] [facility], [address] [place] [address] #### 3520-4 #### [facility] ([id number]) [address] [place] [address] 45682 Potassium [Moles/Vol] 3.1 mmol/L Low 3.5-5.0 [facility] Comment on above: Performed By: #### Feilsa SHIN, #### [facility] ([id number]) [address] [facility], [address] [place] [address] #### 3520-4 #### [facility] ([id number]) [address] [place] [address] 61445 Sodium [Moles/Vol] 138 mmol/L Normal 134-146 [facility] Comment on above: Performed By: #### Felisa SHIN, 10374-1 #### [facility] ([id number]) [address] [facility], [address] [place] [address] #### 3520-4 #### [facility] ([id number]) [address] [place] [address] 25412 Urea nitrogen [Mass/Vol] 21 mg/dL Normal 5-23 [facility] Comment on above: Performed By: #### Felisa SHIN, 94786-8 #### [facility] ([id number]) [address] [facility], [address] [place] [address] #### 3520-4 #### [facility] ([id number]) [address] [place] [address] 88174 CBC AND AUTO DIFFon 11-12-19 24 ABSOLUTE BASOPHIL 0.0 X10E9/L Normal 0.0-0.2 [facility] Comment on above: Performed By: #### Felisa SHIN, 01849-6 #### [facility] ([id number]) [address] [facility], [address] [place] [address] #### 3520-4 #### [facility] ([id number]) [address] [place] [address] 69880 ABSOLUTE NEUTROPHIL 3.6 X10E9/L Normal 1.5-6.6 [facility] Comment on above: Performed By: #### Felisa SHIN, 40969-8 #### [facility] ([id number]) [address] [facility], [address] [place] [address] #### 3520-4 #### [facility] ([id number]) [address] [place] [address] 38110 Basophils/100 WBC (Bld) 0.7 % Normal [facility] Comment on above: Performed By: #### Felisa SHIN, 70298-7 #### [facility] ([id number]) [address] [facility], [address] [place] [address] #### 3520-4 #### [facility] ([id number]) [address] [place] [address] 97651 Eosinophils (Bld) [#/Vol] 0.0 10*3/uL Normal 0.0-0.4 [facility] Comment on above: Performed By: #### Felisa SHIN, 97024-8 #### [facility] ([id number]) [address] [facility] [address] [place] [address] #### 3520-4 #### [facility] ([id number]) [address] [place] [address] 88928 Eosinophils/100 WBC (Bld) 0.0 % Normal [facility] Comment on above: Performed By: #### Felisa SHIN, 12465-8 #### [facility] ([id number]) [address] [facility], [address] [place] [address] #### 3520-4 #### [facility] ([id number]) [address] [place] [address] 74105 Erythrocyte distribution width (RBC) [Ratio] 15.3 % High 11.5-15.0 [facility] Comment on above: Performed By: #### Felisa SHIN, 96065-8 #### [facility] ([id number]) [address] [facility] [address] [place] [address] #### 3520-4 #### [facility] ([id number]) [address] [place] [address] 77627 Hematocrit (Bld) [Volume fraction] 40.6 % Normal 35-47 [facility] Comment on above: Performed By: #### Felisa SHIN, 84760-3 #### [facility] ([id number]) [address], [address] [place] [address] #### 3520-4 #### [facility] ([id number]) [address] [place] [address] 68518 Hemoglobin (Bld) [Mass/Vol] 13.8 g/dL Normal 11.7-15.5 [facility] Comment on above: Performed By: #### Felisa SHIN, 30134-3 #### [facility] ([id number]) [address] [place] [address] #### 3520-4 #### [facility] ([id number]) [address] [place] [address] 06536 Lymphocytes (Bld) [#/Vol] 1.8 10*3/uL Normal 1.0-3.5 [facility] Comment on above: Performed By: #### Felisa SHIN, 89999-8 #### [facility] ([id number]) [address] [place] [address] #### 3520-4 #### [facility] ([id number]) [address] [place] [address] 41720 Lymphocytes/100 WBC (Bld) 29.1 % Normal [facility] Comment on above: Performed By: #### Felisa SHIN, 52512-5 #### [facility] ([id number]) [address] [place] [address] #### 3520-4 #### [facility] ([id number]) [address] [place] [address] 73070 MCH (RBC) [Entitic mass] 27.7 pg Normal 27-34 [facility] Comment on above: Performed By: #### Felisa SHIN, 25978-5 #### [facility] ([id number]) [address] [address] #### 3520-4 #### [facility] ([id number]) [address] [place] [address] 89880 MCHC (RBC) [Mass/Vol] 33.9 g/dL Normal 32-36 [facility] Comment on above: Performed By: #### Felisa SHIN, #### [facility] ([id number]) [address] [address] #### 3520-4 #### [facility] ([id number]) [address] [place] [address] 96968 MCV (RBC) [Entitic vol] 82 fL Normal 80-100 [facility] Comment on above: Performed By: #### Felisa SHIN, #### [facility] ([id number]) [address] [address] #### 3520-4 #### [facility] ([id number]) [address] [place] [address] 27290 Monocytes (Bld) [#/Vol] 0.8 10*3/uL Normal 0-0.9 [facility] Comment on above: Performed By: #### Felisa SHIN, #### [facility] ([id number]) [address] [address] #### 3520-4 #### [facility] ([id number]) [address] [place] [address] 10158 Monocytes/100 WBC (Bld) 12.8 % Normal [facility] Comment on above: Performed By: #### Felisa SHIN, 42340-5 #### [facility] ([id number]) [address] [facility], [address] [place] [address] #### 3520-4 #### [facility] ([id number]) [address] [place] [address] 17907 Neutrophils/100 WBC (Bld) 57.4 % Normal [facility] Comment on above: Performed By: #### Felisa SHIN, 75562-4 #### [facility] ([id number]) [address] [facility], [address] [place] [address] #### 3520-4 #### [facility] ([id number]) [address] [place] [address] 49495 Platelet mean volume (Bld) [Entitic vol] 8.9 fL Normal 7-12 [facility] Comment on above: Performed By: #### Felisa SHIN, 38980-3 #### [facility] ([id number]) [address] [facility], [address] [place] [address] #### 3520-4 #### [facility] ([id number]) [address] [place] [address] 90233 Platelets (Bld) [#/Vol] 255 10*3/uL Normal 150-450 [facility] Comment on above: Performed By: #### Felisa SHIN, 49945-5 #### [facility] ([id number]) [address] [facility], [address] [place] [address] #### 3520-4 #### [facility] ([id number]) [address] [place] [address] 16185 RBC COUNT 4.98 X10E12/L Normal 3.80-5.20 [facility] Comment on above: Performed By: #### Felisa SHIN, 45680-6 #### [facility] ([id number]) [address] [place] [address], [address] [place] [address] #### 3520-4 #### [facility] ([id number]) [address] [place] [address] 52315 WBC (Bld) [#/Vol] 6.3 10*3/uL Normal 4.0-11.0 [facility] Comment on above: Performed By: #### Felisa SHIN, 97051-9 #### [facility] ([id number]) [address] [place] [address], [address] [place] [address] #### 3520-4 #### [facility] ([id number]) [address] [place] [address] 74789 MAGNESIUMon 11-12-2023 Magnesium [Mass/Vol] 2.2 mg/dL Normal 1.8-2.6 [facility] Comment on above: Performed By: #### Felisa SHIN, 94386-7 #### [facility] ([id number]) [address] [place] [address], [address] [place] [address] #### 3520-4 #### [facility] ([id number]) [address] [place] [address] 21072 TSH WITH REFLEXon 11-12-2023 TSH 1.14 uIU/mL Normal 0.49-4.67 [facility] Comment on above: Performed By: #### Felisa SHIN, 85823-9 #### [facility] ([id number]) [address] [place] [address], [address] [place] [address] #### 3520-4 #### [facility] ([id number]) [address] [place] [address] 38256 FREE T4on 11-06-2023 Free T4 [Mass/Vol] 0.77 ng/dL Normal 0.61-1.60 [facility] Comment on above: Performed By: #### Felisa SHIN, 59316-1 #### [facility] ([id number]) [address] [facility], [address] [place] [address] #### 3520-4 #### [facility] ([id number]) [address] [place] [address] 96918 TSH Qnon 11-06-2023 TSH 0.79 uIU/mL Normal 0.49-4.67 [facility] Comment on above: Performed By: #### C MP, 47605-8 #### [facility] ([id number]) [address] [facility], [address] [place] [address] #### 3520-4 #### [facility] ([id number]) [address] [place] [address] 72469 COMPREHENSIVE METABOLIC PANE Salazar 10-26-2023 Albumin [Mass/Vol] 4.6 g/dL Normal 3.2-5.3 [facility] Comment on above: Performed By: #### C MP #### [facility] ([id number]) [address] [facility], [address] [place] [address] #### 3520-4 #### [facility] ([id number]) [address] [place] [address] 98664 ALP [Catalytic activity/Vol] 62 U/L Normal 39-130 [facility] Comment on above: Performed By: #### C MP #### [facility] ([id number]) [address] [facility], [address] [place] [address] #### 3520-4 #### [facility] ([id number]) [address] [place] [address] 40736 ALT [Catalytic activity/Vol] 24 U/L Normal 0-31 [facility] Comment on above: Performed By: #### C MP #### [facility] ([id number]) [address] [facility], [address] [place] [address] #### 3520-4 #### [facility] ([id number]) [address] [place] [address] 74588 Anion gap [Moles/Vol] 9 mmol/L Normal 5-15 [facility] Comment on above: Performed By: #### C MP #### [facility] ([id number]) [address] [facility] [address] [place] [address] #### 3520-4 #### [facility] ([id number]) [address] [place] [address] 67307 AST [Catalytic activity/Vol] 19 U/L Normal 0-41 [facility] Comment on above: Performed By: #### C MP #### [facility] ([id number]) [address] [facility] [address] [place] [address] #### 3520-4 #### [facility] ([id number]) [address] [place] [address] 03149 Bilirubin [Mass/Vol] 0.6 mg/dL Normal 0.3-1.2 [facility] Comment on above: Performed By: #### C MP #### [facility] ([id number]) [facility], [facility] [address] [place] [address] #### 3520-4 #### [facility] ([id number]) [address] [place] [address] 25015 Calcium [Mass/Vol] 9.6 mg/dL Normal 8.5-10.5 [facility] Comment on above: Performed By: #### C MP #### [facility] ([id number]) [address] [facility], [address] [place] [address] #### 3520-4 #### [facility] ([id number]) [address] [place] [address] 70043 Chloride [Moles/Vol] 107 mmol/L Normal 98-109 [facility] Comment on above: Performed By: #### C MP #### [facility] ([id number]) [facility] [address] [place] [address] #### 3520-4 #### [facility] ([id number]) [address] [place] [address] 35219 CO2 [Moles/Vol] 27 mmol/L Normal 22-32 [facility] Comment on above: Performed By: #### C MP #### [facility] ([id number]) [address] [place] [address] #### 3520-4 #### [facility] ([id number]) [address] [place] [address]15 Creatinine [Mass/Vol] 0.83 mg/dL Normal 0.40-1.00 [facility] Comment on above: Result Comment: METH OD TRACEABLE TO IDMS STANDARD Performed By: #### C MP #### [facility] ([id number]) [address] [place] [address] #### 3520-4 #### [facility] ([id number]) [address] [place] [address]39 eGFR (CKD-EPI) NON-RACE DEPENDENT >90 Normal >59 [facility] Comment on above: Result Comment: Reported eGFR is based on the CKD-EPI 2021 equation that does not use a race coefficient. Performed By: #### C MP #### [facility] ([id number]) [address] [place] [address] #### 3520-4 #### [facility] ([id number]) [address] [place] [address] 99360 Glucose [Mass/Vol] 89 mg/dL Normal 65-99 [facility] Comment on above: Performed By: #### C MP #### [facility] ([id number]) [address] [facility] [address] [place] [address] #### 3520-4 #### [facility] ([id number]) [address] [place] [address]696 Potassium [Moles/Vol] 3.8 mmol/L Normal 3.5-5.0 [facility] Comment on above: Performed By: #### C MP #### [facility] ([id number]) [address] [facility], [address] [place] [address] #### 3520-4 #### [facility] ([id number]) [address] [place] [address] 32019 Protein [Mass/Vol] 7.1 g/dL Normal 6.0-8.0 [facility] Comment on above: Performed By: #### C MP #### [facility] ([id number]) [address] [place] [address], [address] [place] [address] #### 3520-4 #### [facility] ([id number]) [address] [place] [address] 42636 Sodium [Moles/Vol] 143 mmol/L Normal 134-146 [facility] Comment on above: Performed By: #### C MP #### [facility] ([id number]) [address] [place] [address], [address] [place] [address] #### 3520-4 #### [facility] ([id number]) [address] [place] [address] 82889 Urea nitrogen [Mass/Vol] 14 mg/dL Normal 5-23 [facility] Comment on above: Performed By: #### C MP #### [facility] ([id number]) [address] [facility], [address] [place] [address] #### 3520-4 #### [facility] ([id number]) [address] [place] [address] Cyclosporineon 10-26-2023 cycloSPORINE (Bld) [Mass/Vol] ng/mL Low 50-500 [facility] Comment on above: Result Comment: NOTE Drug concentration below assay detection limit. Please confirm drug regimen and cancel any standing orders for this drug level if the drug has been discontinued. Reference ranges and high/low indicator flags are provided as general guidelines only. The treating physician must determine appropriate target levels/dosing based on the specific clinical situation. Test performed by chemiluminescent immunoassay using [employer]. Result rechecked. Test Performed By: [place] [address] Overhead Worker: Gary Ohara III #[id number] Performed By: #### C KIP, 82948-4 #### [facility] ([id number]) [address] [place] [address], [address] [address] #### 3520-4 #### [facility] ([id number]) [address] [place] [address] 40910 MAGNESIUMon 10-26-2023 Magnesium [Mass/Vol] 2.1 mg/dL Normal 1.8-2.6 [facility] Comment on above: Performed By: #### C MP #### [facility] ([id number]) [address] [place] [address] #### 3520-4 #### [facility] ([id number]) [address] [place] [address] 06478 COMPREHENSIVE METABOLIC PANE Salazar 09-25-2023 Albumin [Mass/Vol] 4.4 g/dL Normal 3.2-5.3 [facility] Comment on above: Performed By: #### C MP #### [facility] ([id number]) [address] [place] [address], [address] [address] #### 3520-4 #### [facility] ([id number]) [address] [place] [address] 21895 ALP [Catalytic activity/Vol] 64 U/L Normal 39-130 [facility] Comment on above: Performed By: #### C MP #### [facility] ([id number]) [address] [facility], [address] [place] [address] #### 3520-4 #### [facility] ([id number]) [address] [place] [address] 97684 ALT [Catalytic activity/Vol] 21 U/L Normal 0-31 [facility] Comment on above: Performed By: #### C MP #### [facility] ([id number]) [address] [facility], [address] [place] [address] #### 3520-4 #### [facility] ([id number]) [address] [place] [address] 82133 Anion gap [Moles/Vol] 10 mmol/L Normal 5-15 [facility] Comment on above: Performed By: #### C MP #### [facility] ([id number]) [address] [facility], [address] [place] [address] #### 3520-4 #### [facility] ([id number]) [address] [place] [address] 71222 AST [Catalytic activity/Vol] 18 U/L Normal 0-41 [facility] Comment on above: Performed By: #### C MP #### [facility] ([id number]) [address] [facility], [address] [place] [address] #### 3520-4 #### [facility] ([id number]) [address] [place] [address] 59515 Bilirubin [Mass/Vol] 0.5 mg/dL Normal 0.3-1.2 [facility] Comment on above: Performed By: #### C MP #### [facility] ([id number]) [address] [place] [address] [address] [place] [address] #### 3520-4 #### [facility] ([id number]) [address] [place] [address] 95656 Calcium [Mass/Vol] 9.5 mg/dL Normal 8.5-10.5 [facility] Comment on above: Performed By: #### C MP #### [facility] ([id number]) [address] [place] [address] [address] [place] [address] #### 3520-4 #### [facility] ([id number]) [address] [place] [address] 61868 Chloride [Moles/Vol] 107 mmol/L Normal 98-109 [facility] Comment on above: Performed By: #### C MP #### [facility] ([id number]) [address] [place] [address] [address] [facility] [place] [address] #### 3520-4 #### [facility] ([id number]) [address] [place] [address] 07954 CO2 [Moles/Vol] 25 mmol/L Normal 22-32 [facility] Comment on above: Performed By: #### C MP #### [facility] ([id number]) [address] [place] [address] [address] [place] [address] #### 3520-4 #### [facility] ([id number]) [address] [place] [address] 29390 Creatinine [Mass/Vol] 0.87 mg/dL Normal 0.40-1.00 [facility] Comment on above: Result Comment: METH OD TRACEABLE TO IDMS STANDARD Performed By: #### C MP #### [facility] ([id number]) [address] [place] [address], [address] [place] [address] #### 3520-4 #### [facility] ([id number]) [address] [place] [address] 71620 GFR/1.73 sq M.predicted among non-blacks MDRD (S/P/Bld) [Vol rate/Area] 86 mL/min/{1.73_m2} Normal >59 [facility] Comment on above: Result Comment: Reported eGFR is based on the CKD-EPI 2020 equation that does not use a race coefficient. Performed By: #### C MP #### [facility] ([id number]) [address] [place] [address] #### 3520-4 #### [facility] ([id number]) [address] [place] [address] 76068 Glucose [Mass/Vol] 84 mg/dL Normal 65-99 [facility] Comment on above: Performed By: #### C MP #### [facility] ([id number]) [address] [place] [address] #### 3520-4 #### [facility] ([id number]) [address] [place] [address] 36322 Potassium [Moles/Vol] 3.7 mmol/L Normal 3.5-5.0 [facility] Comment on above: Performed By: #### C MP #### [facility] ([id number]) [address] [place] [address] [address] [place] [address] #### 3520-4 #### [facility] ([id number]) [address] [place] [address] 13549 Protein [Mass/Vol] 6.9 g/dL Normal 6.0-8.0 [facility] Comment on above: Performed By: #### C MP #### [facility] ([id number]) [address] [place] [address] [address] [place] [address] #### 3520-4 #### [facility] ([id number]) [address] [place] [address] 50053 Sodium [Moles/Vol] 142 mmol/L Normal 134-146 [facility] Comment on above: Performed By: #### C MP #### [facility] ([id number]) [address] [place] [address], [facility] [address] [place] [address] #### 3520-4 #### [facility] ([id number]) [address] [place] [address] 70311 Urea nitrogen [Mass/Vol] 16 mg/dL Normal 5-23 [facility] Comment on above: Performed By: #### C MP #### [facility] ([id number]) [address] [place] [address], [facility] [address] [place] [address] #### 3520-4 #### [facility] ([id number]) [address] [place] [address] 29415 Cyclosporineon 09-25-2023 cycloSPORINE (Bld) [Mass/Vol] ng/mL Low 50-500 [facility] Comment on above: Result Comment: NOTE Drug concentration below assay detection limit. Please confirm drug regimen and cancel any standing orders for this drug level if the drug has been discontinued. Reference ranges and high/low indicator flags are provided as general guidelines only. The treating physician must determine appropriate target levels/dosing based on the specific clinical situation. Test performed by chemiluminescent immunoassay using [employer]. Result rechecked. Test Performed By: [facility] [employer] [address] [place] [address] Overhead Worker: Gary Ohara III #[id number] Performed By: #### C MP #### [facility] ([id number]) [address] [place] [address], [address] [place] [address] #### 3520-4 #### [facility] ([id number]) [address] [place] [address] 71569 MAGNESIUMon 09-25-2023 Magnesium [Mass/Vol] 2.0 mg/dL Normal 1.8-2.6 [facility] Comment on above: Performed By: #### C MP #### [facility] ([id number]) [address], [address] [place] [address] #### 3520-4 #### [facility] ([id number]) [address] [place] [address] 06784 COMPREHENSIVE METABOLIC PANE Salazar 08-28-2023 Albumin [Mass/Vol] 4.2 g/dL Normal 3.2-5.3 [facility] Comment on above: Performed By: #### C MP #### [facility] ([id number]) [address] [facility], [address] [place] [address] #### 3520-4 #### [facility] ([id number]) [address] [place] [address] 46857 ALP [Catalytic activity/Vol] 68 U/L Normal 39-130 [facility] Comment on above: Performed By: #### C MP #### [facility] ([id number]) [address], [address] [place] [address] #### 3520-4 #### [facility] ([id number]) [address] [place] [address] 06403 ALT [Catalytic activity/Vol] 26 U/L Normal 0-31 [facility] Comment on above: Performed By: #### C MP #### [facility] ([id number]) [address], [address] [place] [address] #### 3520-4 #### [facility] ([id number]) [address] [place] [address] 21450 Anion gap [Moles/Vol] 9 mmol/L Normal 5-15 [facility] Comment on above: Performed By: #### C MP #### [facility] ([id number]) [address] [facility], [address] [place] [address] #### 3520-4 #### [facility] ([id number]) [address] [place] [address] 30443 AST [Catalytic activity/Vol] 22 U/L Normal 0-41 [facility] Comment on above: Performed By: #### C MP #### [facility] ([id number]) [address] [facility], [address] [place] [address] #### 3520-4 #### [facility] ([id number]) [address] [place] [address] 94115 Bilirubin [Mass/Vol] 0.7 mg/dL Normal 0.3-1.2 [facility] Comment on above: Performed By: #### C MP #### [facility] ([id number]) [address] [facility], [address] [place] [address] #### 3520-4 #### [facility] ([id number]) [address] [place] [address] 71944 Calcium [Mass/Vol] 9.1 mg/dL Normal 8.5-10.5 [facility] Comment on above: Performed By: #### C MP #### [facility] ([id number]) [address] [facility], [address] [place] [address] #### 3520-4 #### [facility] ([id number]) [address] [place] [address] 70179 Chloride [Moles/Vol] 110 mmol/L High 98-109 [facility] Comment on above: Performed By: #### C MP #### [facility] ([id number]) [address] [facility], [address] [place] [address] #### 3520-4 #### [facility] ([id number]) [address] [place] [address] 98910 CO2 [Moles/Vol] 24 mmol/L Normal 22-32 [facility] Comment on above: Performed By: #### C MP #### [facility] ([id number]) [address] [place] [address] #### 3520-4 #### [facility] ([id number]) [address] [place] [address] 85633 Creatinine [Mass/Vol] 0.93 mg/dL Normal 0.40-1.00 [facility] Comment on above: Result Comment: METH OD TRACEABLE TO IDMS STANDARD Performed By: #### C MP #### [facility] ([id number]) [address] [place] [address] #### 3520-4 #### [facility] ([id number]) [address] [place] [address] 99827 GFR/1.73 sq M.predicted among non-blacks MDRD (S/P/Bld) [Vol rate/Area] 79 mL/min/{1.73_m2} Normal >59 [facility] Comment on above: Result Comment: Reported eGFR is based on the CKD-EPI 2020 equation that does not use a race coefficient. Performed By: #### C MP #### [facility] ([id number]) [address] [place] [address] #### 3520-4 #### [facility] ([id number]) [address] [place] [address] 43980 Glucose [Mass/Vol] 84 mg/dL Normal 65-99 [facility] Comment on above: Performed By: #### C MP #### [facility] ([id number]) [address] [place] [address], [address] [place] [address] #### 3520-4 #### [facility] ([id number]) [address] [place] [address] 47763 Potassium [Moles/Vol] 3.6 mmol/L Normal 3.5-5.0 [facility] Comment on above: Performed By: #### C MP #### [facility] ([id number]) [address], [address] [place] [address] #### 3520-4 #### [facility] ([id number]) [address] [place] [address] 85628 Protein [Mass/Vol] 6.8 g/dL Normal 6.0-8.0 [facility] Comment on above: Performed By: #### C MP #### [facility] ([id number]) [address] [facility], [address] [place] [address] #### 3520-4 #### [facility] ([id number]) [address] [place] [address] 12837 Sodium [Moles/Vol] 143 mmol/L Normal 134-146 [facility] Comment on above: Performed By: #### C MP #### [facility] ([id number]) [address], [address] [place] [address] #### 3520-4 #### [facility] ([id number]) [address] [place] [address] 73170 Urea nitrogen [Mass/Vol] 15 mg/dL Normal 5-23 [facility] Comment on above: Performed By: #### C MP #### [facility] ([id number]) [address], [address] [place] [address] #### 3520-4 #### [facility] ([id number]) [address] [place] [address] 28296 Cyclosporineon 08-28-2023 cycloSPORINE (Bld) [Mass/Vol] 45 ng/mL Low 50-500 [facility] Comment on above: Result Comment: NOTE Optimal trough concentration: 50-500 ng/mL. These reference ranges are provided as a general recommendation. Individualized target levels for a given patient will depend on many factors (including the type of organ transplant, time since transplantation, concurrent medications, and other clinical factors), and should be assessed by those health care providers experienced in the management of immunosuppression. Reference ranges and high/low indicator flags are provided as general guidelines only. The treating physician must determine appropriate target levels/dosing based on the specific clinical situation. Test performed by chemiluminescent immunoassay using [employer]. Test Performed By: [place] [address] Overhead Worker: Gary Ohara III #[id number] Performed By: #### C MP #### [facility] ([id number]) [address] [place] [address], [address] [address] #### 3520-4 #### [facility] ([id number]) [address] [place] [address] 76998 FREE T4on 08-28-2023 Free T4 [Mass/Vol] 0.60 ng/dL Low 0.61-1.60 [facility] Comment on above: Performed By: #### C MP #### [facility] ([id number]) [address] [place] [address] #### 3520-4 #### [facility] ([id number]) [address] [place] [address] 53646 MAGNESIUMon 08-28-2023 Magnesium [Mass/Vol] 2.1 mg/dL Normal 1.8-2.6 [facility] Comment on above: Performed By: #### C MP #### [facility] ([id number]) [address] [place] [address], [address] [address] #### 3520-4 #### [facility] ([id number]) [address] [facility], [place] [address] TSH Qnon 08-28-2023 TSH 2.26 uIU/mL Normal 0.49-4.67 [facility] Comment on above: Performed By: #### C KIP #### [facility] ([id number]) [address] [facility], [address] [place] [address] #### 3520-4 #### [facility] ([id number]) [address] [facility], [place] [address] IGP,APTIMA HPV,AGE GDLNon AGE GDLN ACOG TESTING Note . [facility] Comment on above: TESTS RESULT FLAG UN ITS REF RANGE LAB Clinician Provided Cytology Information Source.............Cervix No. of containers..01 ThinPrep Vial Age Algo ACOG Monet... FLAG LEGEND: L-Low Normal,H-High Normal,LL-Alert Low,HH-Alert High <-Panic Low,>-Panic High,A-Abnormal,AA-Critical Abnormal Performed at: 01 =[facility] [place] [address] Chey Obregon MD, HPV APTIMA Negative Negative [facility] Comment on above: This nucleic acid am plification test detects fourteen high- risk HPV types (16,18,31,33,35,39,45,51,52,56,58,59,66,68) without differentiation. Performed at: = - [address] [id number] [employer] Machinery Or Equipment Installer: Chey Obregon MD, Phone: [phone] Performed at: - [facility] [id number] Office Machinery Or Equipment Installer: Chey Obregon MD, Phone: [phone] IGP, APTIMA HPV, RFX 16/18,45 Note . [facility] Comment on above: TESTS RESULT FLAG UN ITS REF RANGE LAB DIAGNOSIS: 02 NEGATIVE FOR INTRAEPITHELIAL LESION OR MALIGNANCY. Specimen adequacy: 02 Satisfactory for evaluation. Endocervical and/or squamous metaplastic cells (endocervical component) are present. Performed by: Seng Jara, [employer] Or Work Dispatcher (ASCP) . 02 Note: Note 02 The Pap smear is a screening test designed to aid in the detection of premalignant and malignant conditions of the uterine cervix. It is not a diagnostic procedure and should not be used as the sole means of detecting cervical cancer. Both false-positive and false-negative reports do occur. Test Methodology: Note 02 This liquid based ThinPrep(R) pap test was screened with the use of an image guided system. HPV Genotype Reflex Note 02 Criteria not met, HPV Genotype not performed. FLAG LEGEND: L-Low Normal,H-High Normal,LL-Alert Low,HH-Alert High <-Panic Low,>-Panic High,A-Abnormal,AA-Critical Abnormal Performed at: 02 WB [facility] [address] [place] [address] Chey Obregon MD, BRUSH-SPATULA CERVIX [facility] METABOLIC PANE [facility] 07-30-2023 Albumin [Mass/Vol] 4.2 g/dL Normal 3.2-5.3 [facility] Comment on above: Performed By: #### C MP #### [facility] ([id number]) [address] [facility], [address] [place] [address] #### 3520-4 #### [facility] ([id number]) [address] [place] [address]5801 ALP [Catalytic activity/Vol] 79 U/L Normal 39-130 [facility] Comment on above: Performed By: #### C MP #### [facility] ([id number]) [address] [facility], [address] [place] [address] #### 3520-4 #### [facility] ([id number]) [address] [place] [address] 97443 ALT [Catalytic activity/Vol] 20 U/L Normal 0-31 [facility] Comment on above: Performed By: #### C MP #### [facility] ([id number]) [address] [facility], [address] [place] [address] #### 3520-4 #### [facility] ([id number]) [address] [place] [address] 66824 Anion gap [Moles/Vol] 7 mmol/L Normal 5-15 [facility] Comment on above: Performed By: #### C MP #### [facility] ([id number]) [address] [facility], [address] [place] [address] #### 3520-4 #### [facility] ([id number]) [address] [place] [address] 78396 AST [Catalytic activity/Vol] 17 U/L Normal 0-41 [facility] Comment on above: Performed By: #### C MP #### [facility] ([id number]) [address] [facility], [address] [place] [address] #### 3520-4 #### [facility] ([id number]) [address] [place] [address] 39862 Bilirubin [Mass/Vol] 0.5 mg/dL Normal 0.3-1.2 [facility] Comment on above: Performed By: #### C MP #### [facility] ([id number]) [address] [place] [address] [address] [place] [address] #### 3520-4 #### [facility] ([id number]) [address] [place] [address] 22110 Calcium [Mass/Vol] 9.1 mg/dL Normal 8.5-10.5 [facility] Comment on above: Performed By: #### C MP #### [facility] ([id number]) [address] [facility], [address] [place] [address] #### 3520-4 #### [facility] ([id number]) [address] [place] [address] 86776 Chloride [Moles/Vol] 107 mmol/L Normal 98-109 [facility] Comment on above: Performed By: #### C MP #### [facility] ([id number]) [address] [facility], [address] [place] [address] #### 3520-4 #### [facility] ([id number]) [address] [place] [address] 38658 CO2 [Moles/Vol] 28 mmol/L Normal 22-32 [facility] Comment on above: Performed By: #### C MP #### [facility] ([id number]) [address] [place] [address], [facility] [address] [place] [address] #### 3520-4 #### [facility] ([id number]) [address] [place] [address] 49375 Creatinine [Mass/Vol] 0.88 mg/dL Normal 0.40-1.00 [facility] Comment on above: Result Comment: METH OD TRACEABLE TO IDMS STANDARD Performed By: #### C MP #### [facility] ([id number]) [address] [place] [address] [address] [place] [address] #### 3520-4 #### [facility] ([id number]) [address] [place] [address] 33173 GFR/1.73 sq M.predicted among non-blacks MDRD (S/P/Bld) [Vol rate/Area] 85 mL/min/{1.73_m2} Normal >59 [facility] Comment on above: Result Comment: Reported eGFR is based on the CKD-EPI 2020 equation that does not use a race coefficient. Performed By: #### C MP #### [facility] ([id number]) [address] [place] [address] [address] [place] [address] #### 3520-4 #### [facility] ([id number]) [address] [place] [address] 90177 Glucose [Mass/Vol] 82 mg/dL Normal 65-99 [facility] Comment on above: Performed By: #### C MP #### [facility] ([id number]) [address] [place] [address], [facility] [address] [place] [address] #### 3520-4 #### [facility] ([id number]) [address] [place] [id number] Potassium [Moles/Vol] 3.7 mmol/L Normal 3.5-5.0 [facility] Comment on above: Performed By: #### C MP #### [facility] ([id number]) [address] [facility], [address] [place] [address] #### 3520-4 #### [facility] ([id number]) [address] [place] [address] Protein [Mass/Vol] 6.4 g/dL Normal 6.0-8.0 [facility] [facility] Comment on above: Performed By: #### C MP #### [facility] ([id number]) 0 [facility], [address] [address] #### 3520-4 #### [facility] ([id number]) [address] [place] [address]89 Sodium [Moles/Vol] 142 mmol/L Normal 134-146 [facility] Comment on above: Performed By: #### C MP #### [facility] ([id number]) [address] [place] [address], [address] [address] #### 3520-4 #### [facility] ([id number]) [address] [place] [address] 83348 Urea nitrogen [Mass/Vol] 19 mg/dL Normal 5-23 [facility] Comment on above: Performed By: #### C MP #### [facility] ([id number]) 0 [facility] [address] [place] [address] #### 3520-4 #### [facility] ([id number]) [address] [place] [address] Cyclosporineon 07-30-2023 cycloSPORINE (Bld) [Mass/Vol] 42 ng/mL Low 50-500 [facility] Comment on above: Result Comment: NOTE Optimal trough concentration: 50-500 ng/mL. These reference ranges are provided as a general recommendation. Individualized target levels for a given patient will depend on many factors (including the type of organ transplant, time since transplantation, concurrent medications, and other clinical factors), and should be assessed by those health care providers experienced in the management of immunosuppression. Reference ranges and high/low indicator flags are provided as general guidelines only. The treating physician must determine appropriate target levels/dosing based on the specific clinical situation. Test performed by chemiluminescent immunoassay using vitalclip. Test Performed By: [facility] [employer] [address] [place] [address] Overhead Worker: Ry Mcgee III, M.D. CLIA #[id number] Performed By: #### Felisa SHIN #### [facility] ([id number]) [address] [place] [address] #### 3520-4 #### [facility] ([id number]) [address] [place] [address] [address] [facility] 07-16-2023 Albumin [Mass/Vol] 4.0 g/dL Normal 3.2-5.3 [facility] Comment on above: Performed By: #### Felisa SHIN, 21482-9 #### [facility] ([id number]) [address] [place] [address] #### 3520-4 #### [facility] ([id number]) [address] [place] [address]199 ALP [Catalytic activity/Vol] 85 U/L Normal 39-130 [facility] Comment on above: Performed By: #### Felisa SHIN, 78265-9 #### [facility] ([id number]) [address] [place] [address], [address] [address] #### 3520-4 #### [facility] ([id number]) [address] [place] [address]6524 ALT [Catalytic activity/Vol] 24 U/L Normal 0-31 [facility] Comment on above: Performed By: #### Felisa SHIN, 96536-7 #### [facility] ([id number]) [address], [address] [place] [address] #### 3520-4 #### [facility] ([id number]) [address] [place] [address]6557 Anion gap [Moles/Vol] 9 mmol/L Normal 5-15 [facility] Comment on above: Performed By: #### Felisa SHIN, 70073-8 #### [facility] ([id number]) 0 [facility], [address] [place] [address] #### 3520-4 #### [facility] ([id number]) [address] [place] [address] 56[address] AST [Catalytic activity/Vol] 18 U/L Normal 0-41 [facility] Comment on above: Performed By: #### Felisa SHIN, #### [facility] ([id number]) 0 [facility], [address] [place] [address] #### 3520-4 #### [facility] ([id number]) [address] [place] [address] 66784 Bilirubin [Mass/Vol] 0.6 mg/dL Normal 0.3-1.2 [facility] Comment on above: Performed By: #### Felisa SHIN, #### [facility] ([id number]) [address] [facility], [address] [place] [address] #### 3520-4 #### [facility] ([id number]) [address] [place] [address] 08797 Calcium [Mass/Vol] 9.1 mg/dL Normal 8.5-10.5 [facility] Comment on above: Performed By: #### Felisa SHIN, #### [facility] ([id number]) [address], [address] [place] [address] #### 3520-4 #### [facility] ([id number]) [address] [place] [address] 41853 Chloride [Moles/Vol] 108 mmol/L Normal 98-109 [facility] Comment on above: Performed By: #### Felisa SHIN, #### [facility] ([id number]) 0 [facility], [address] [place] [address] #### 3520-4 #### [facility] ([id number]) [address] [place] [address] 28336 CO2 [Moles/Vol] 26 mmol/L Normal 22-32 [facility] Comment on above: Performed By: #### Felisa SHIN, #### [facility] ([id number]) 0 [facility], [address] [place] [address] #### 3520-4 #### [facility] ([id number]) [address] [place] [address] 13754 Creatinine [Mass/Vol] 0.81 mg/dL Normal 0.40-1.00 [facility] Comment on above: Result Comment: METH OD TRACEABLE TO IDMS STANDARD Performed By: #### Felisa SHIN, #### [facility] ([id number]) [address], [address] [place] [address] #### 3520-4 #### [facility] ([id number]) [address] [place] [address] eGFR (CKD-EPI) NON-RACE DEPENDENT >90 Normal >59 [facility] Comment on above: Result Comment: Reported eGFR is based on the CKD-EPI 2020 equation that does not use a race coefficient. Performed By: #### Felisa SHIN, #### [facility] ([id number]) [address] [place] [address] #### 3520-4 #### [facility] ([id number]) [address] [place] [address] 69529 Glucose [Mass/Vol] 85 mg/dL Normal 65-99 [facility] Comment on above: Performed By: #### Felisa SHIN, 26582-7 #### [facility] ([id number]) [address], [address] [place] [address] #### 3520-4 #### [facility] ([id number]) [address] [place] [address] Potassium [Moles/Vol] 3.4 mmol/L Low 3.5-5.0 [facility] Comment on above: Performed By: #### Felisa SHIN, #### [facility] ([id number]) [address] [place] [address] #### 3520-4 #### [facility] ([id number]) [address] [place] [address] 74758 Protein [Mass/Vol] 6.6 g/dL Normal 6.0-8.0 [facility] Comment on above: Performed By: #### Felisa SHIN, #### [facility] ([id number]) [address] [place] [address] #### 3520-4 #### [facility] ([id number]) [address] [place] [address] Sodium [Moles/Vol] 143 mmol/L Normal 134-146 [facility] Comment on above: Performed By: #### C KIP, #### [facility] ([id number]) [address] [place] [address] #### 3520-4 #### [facility] ([id number]) [address] [place] [address] Urea nitrogen [Mass/Vol] 19 mg/dL Normal 5-23 [facility] Comment on above: Performed By: #### Felisa SHIN, 35011-4 #### [facility] ([id number]) 0 [facility], [facility] [address] [place] [address] #### 3520-4 #### [facility] ([id number]) [address] [place] [address] Cyclosporineon 07-16-2023 cycloSPORINE (Bld) [Mass/Vol] 56 ng/mL Normal 50-500 [facility] Comment on above: Result Comment: NOTE Optimal trough concentration: 50-500 ng/mL. These reference ranges are provided as a general recommendation. Individualized target levels for a given patient will depend on many factors (including the type of organ transplant, time since transplantation, concurrent medications, and other clinical factors), and should be assessed by those health care providers experienced in the management of immunosuppression. Reference ranges and high/low indicator flags are provided as general guidelines only. The treating physician must determine appropriate target levels/dosing based on the specific clinical situation. Test performed by chemiluminescent immunoassay using vitalclip. Test Performed By: [facility] [employer] [address] [place] [address] Overhead Worker: Ry Mcgee III, M.D. [facility] #[id number] Performed By: #### Felisa SHIN, 00852-7 #### [facility] ([id number]) 0 [facility], [facility] [address] [place] [address] #### 3520-4 #### [facility] ([id number]) [address] [place] [address] MAGNESIUMon 07-16-2023 Magnesium [Mass/Vol] 2.0 mg/dL Normal 1.8-2.6 [facility] Comment on above: Performed By: #### Felisa SHIN, 93467-4 #### [facility] ([id number]) [address] [facility], [address] [place] [address] #### 3520-4 #### [facility] ([id number]) [address] [place] [address] [address]OLIC PANE [facility] 06-29-2023 Albumin [Mass/Vol] 4.6 g/dL Normal 3.2-5.3 [facility] Comment on above: Performed By: #### Felisa SHIN, 13556-2 #### [facility] ([id number]) [address] [facility], [address] [place] [address] #### 3520-4 #### [facility] ([id number]) [address] [place] [address] ALP [Catalytic activity/Vol] 67 U/L Normal 39-130 [facility] Comment on above: Performed By: #### Felisa SHIN, 47962-2 #### [facility] ([id number]) [address] [facility], [address] [place] [address] #### 3520-4 #### [facility] ([id number]) [address] [place] [address] 9[address]45 ALT [Catalytic activity/Vol] 26 U/L Normal 0-31 [facility] Comment on above: Performed By: #### Felisa SHIN, 35223-3 #### [facility] ([id number]) [address] [facility], [address] [place] [address] #### 3520-4 #### [facility] ([id number]) [address] [place] [address] Anion gap [Moles/Vol] 9 mmol/L Normal 5-15 [facility] Comment on above: Performed By: #### Felisa SHIN, 33762-9 #### [facility] ([id number]) [address] [facility], [address] [place] [address] #### 3520-4 #### [facility] ([id number]) [address] [place] [address] 65228 AST [Catalytic activity/Vol] 22 U/L Normal 0-41 [facility] Comment on above: Performed By: #### Felisa SHIN, 68102-3 #### [facility] ([id number]) [address] [facility], [address] [place] [address] #### 3520-4 #### [facility] ([id number]) [address] [place] [address] Bilirubin [Mass/Vol] 0.5 mg/dL Normal 0.3-1.2 [facility] Comment on above: Performed By: #### Felisa SHIN, 50404-6 #### [facility] ([id number]) [address] [facility], [address] [place] [address] #### 3520-4 #### [facility] ([id number]) [address] [place] [address] Calcium [Mass/Vol] 9.5 mg/dL Normal 8.5-10.5 [facility] Comment on above: Performed By: #### Felisa SHIN, 46903-8 #### [facility] ([id number]) [address] [facility], [address] [place] [address] #### 3520-4 #### [facility] ([id number]) [address] [place] [address] Chloride [Moles/Vol] 107 mmol/L Normal 98-109 [facility] Comment on above: Performed By: #### Felisa SHIN, 94942-3 #### [facility] ([id number]) [address] [facility], [address] [place] [address] #### 3520-4 #### [facility] ([id number]) [address] [place] [address] CO2 [Moles/Vol] 26 mmol/L Normal 22-32 [facility] Comment on above: Performed By: #### Felisa SHIN, 92234-9 #### [facility] ([id number]) [address], [address] [place] [address] #### 3520-4 #### [facility] ([id number]) [address] [place] [address]6627 Creatinine [Mass/Vol] 0.86 mg/dL Normal 0.40-1.00 [facility] Comment on above: Result Comment: METH OD TRACEABLE TO IDMS STANDARD Performed By: #### Felisa SHIN, 90766-8 #### [facility] ([id number]) [address] [facility], [address] [place] [address] #### 3520-4 #### [facility] ([id number]) [address] [place] [address] GFR/1.73 sq M.predicted among non-blacks MDRD (S/P/Bld) [Vol rate/Area] 87 mL/min/{1.73_m2} Normal >59 [facility] Comment on above: Result Comment: Reported eGFR is based on the CKD-EPI 2020 equation that does not use a race coefficient. Performed By: #### Felisa SHIN, 88528-4 #### [facility] ([id number]) [address], [address] [place] [address] #### 3520-4 #### [facility] ([id number]) [address] [place] [address] 98069 Glucose [Mass/Vol] 124 mg/dL High 65-99 [facility] Comment on above: Performed By: #### Felisa SHIN, 91752-7 #### [facility] ([id number]) [address] [facility], [address] [facility] [place] [address] #### 3520-4 #### [facility] ([id number]) [address] [place] [address] 73582 Potassium [Moles/Vol] 3.7 mmol/L Normal 3.5-5.0 [facility] Comment on above: Performed By: #### Felisa SHIN, 39985-1 #### [facility] ([id number]) [address] [facility], [address] [place] [address] #### 3520-4 #### [facility] ([id number]) [address] [place] [address] 21323 Protein [Mass/Vol] 7.2 g/dL Normal 6.0-8.0 [facility] Comment on above: Performed By: #### Felisa SHIN, 13220-2 #### [facility] ([id number]) [address] [facility] [address] [place] [address] #### 3520-4 #### [facility] ([id number]) [address] [place] [address] 82429 Sodium [Moles/Vol] 142 mmol/L Normal 134-146 [facility] Comment on above: Performed By: #### Felisa SHIN, 51210-1 #### [facility] ([id number]) [address] [facility], [facility] [address] [place] [address] #### 3520-4 #### [facility] ([id number]) [address] [place] [address] Urea nitrogen [Mass/Vol] 17 mg/dL Normal 5-23 [facility] Comment on above: Performed By: #### Felisa SHIN, 12171-5 #### [facility] ([id number]) [address] [facility], [address] [place] [address] #### 3520-4 #### [facility] ([id number]) [address] [place] [address] Cyclosporineon 06-29-2023 cycloSPORINE (Bld) [Mass/Vol] ng/mL Low 50-500 [facility] Comment on above: Result Comment: NOTE Drug concentration below assay detection limit. Please confirm drug regimen and cancel any standing orders for this drug level if the drug has been discontinued. Reference ranges and high/low indicator flags are provided as general guidelines only. The treating physician must determine appropriate target levels/dosing based on the specific clinical situation. Test performed by chemiluminescent immunoassay using vitalclip. Result rechecked. Test Performed By: [place] [address] Overhead Worker: Gary Ohara III #[id number] Performed By: #### C KIP, 21075-0 #### [facility] ([id number]) [address] [place] [address], [facility] [address] [place] [address] #### 3520-4 #### [facility] ([id number]) [address] [place] [address] MAGNESIUMon 06-29-2023 Magnesium [Mass/Vol] 2.0 mg/dL Normal 1.8-2.6 [facility] Comment on above: Performed By: #### Felisa SHIN, 33698-0 #### [facility] ([id number]) [address] [place] [address], [address] [address] #### 3520-4 #### [facility] ([id number]) [address] [place] [address] COMPREHENSIVE METABOLIC PANE [facility] 06-19-2023 Albumin [Mass/Vol] 4.4 g/dL Normal 3.2-5.3 [facility] Comment on above: Performed By: #### Felisa SHIN #### [facility] ([id number]) [address] [place] [address], [address] [place] [address] #### 3520-4 #### [facility] ([id number]) [address] [place] [address] 18002 ALP [Catalytic activity/Vol] 74 U/L Normal 39-130 [facility] Comment on above: Performed By: #### C MP #### [facility] ([id number]) [address] [facility], [address] [place] [address] #### 3520-4 #### [facility] ([id number]) [address] [place] [address] 98925 ALT [Catalytic activity/Vol] 26 U/L Normal 0-31 [facility] Comment on above: Performed By: #### C MP #### [facility] ([id number]) [address] [facility], [address] [place] [address] #### 3520-4 #### [facility] ([id number]) [address] [place] [address] 75053 Anion gap [Moles/Vol] 9 mmol/L Normal 5-15 [facility] Comment on above: Performed By: #### C MP #### [facility] ([id number]) [address] [facility], [address] [place] [address] #### 3520-4 #### [facility] ([id number]) [address] [place] [address] 49949 AST [Catalytic activity/Vol] 22 U/L Normal 0-41 [facility] Comment on above: Performed By: #### C MP #### [facility] ([id number]) [address] [facility], [address] [place] [address] #### 3520-4 #### [facility] ([id number]) [address] [place] [address] 38847 Bilirubin [Mass/Vol] 0.7 mg/dL Normal 0.3-1.2 [facility] Comment on above: Performed By: #### C MP #### [facility] ([id number]) [address] [facility], [address] [place] [address] #### 3520-4 #### [facility] ([id number]) [address] [place] [address] 35516 Calcium [Mass/Vol] 9.1 mg/dL Normal 8.5-10.5 [facility] Comment on above: Performed By: #### C MP #### [facility] ([id number]) [address] [facility], [address] [place] [address] #### 3520-4 #### [facility] ([id number]) [address] [place] [address] 06842 Chloride [Moles/Vol] 106 mmol/L Normal 98-109 [facility] Comment on above: Performed By: #### C MP #### [facility] ([id number]) [address] [place] [address], [address] [place] [address] #### 3520-4 #### [facility] ([id number]) [address] [place] [address] 60981 CO2 [Moles/Vol] 24 mmol/L Normal 22-32 [facility] Comment on above: Performed By: #### C MP #### [facility] ([id number]) [address] [place] [address], [address] [place] [address] #### 3520-4 #### [facility] ([id number]) [address] [place] [address] 22768 Creatinine [Mass/Vol] 0.85 mg/dL Normal 0.40-1.00 [facility] Comment on above: Result Comment: METH OD TRACEABLE TO IDMS STANDARD Performed By: #### C MP #### [facility] ([id number]) [address] [place] [address], [address] [place] [address] #### 3520-4 #### [facility] ([id number]) [address] [place] [address] 55097 GFR/1.73 sq M.predicted among non-blacks MDRD (S/P/Bld) [Vol rate/Area] 88 mL/min/{1.73_m2} Normal >59 [facility] Comment on above: Result Comment: Reported eGFR is based on the CKD-EPI 2020 equation that does not use a race coefficient. Performed By: #### C MP #### [facility] ([id number]) [address] [place] [address], [address] [place] [address] #### 3520-4 #### [facility] ([id number]) [address] [place] [address] 04955 Glucose [Mass/Vol] 85 mg/dL Normal 65-99 [facility] Comment on above: Performed By: #### C MP #### [facility] ([id number]) [address] [facility], [address] [place] [address] #### 3520-4 #### [facility] ([id number]) [address] [place] [address] 79299 Potassium [Moles/Vol] 3.7 mmol/L Normal 3.5-5.0 [facility] Comment on above: Performed By: #### C MP #### [facility] ([id number]) [address] [place] [address], [address] [place] [address] #### 3520-4 #### [facility] ([id number]) [address] [place] [address] 00540 Protein [Mass/Vol] 6.6 g/dL Normal 6.0-8.0 [facility] Comment on above: Performed By: #### C MP #### [facility] ([id number]) [address] [place] [address], [address] [place] [address] #### 3520-4 #### [facility] ([id number]) [address] [place] [address] 44902 Sodium [Moles/Vol] 139 mmol/L Normal 134-146 [facility] Comment on above: Performed By: #### C MP #### [facility] ([id number]) [address] [facility], [address] [place] [address] #### 3520-4 #### [facility] ([id number]) [address] [place] [address] 04592 Urea nitrogen [Mass/Vol] 18 mg/dL Normal 5-23 [facility] Comment on above: Performed By: #### C MP #### [facility] ([id number]) [address] [facility], [address] [place] [address] #### 3520-4 #### [facility] ([id number]) [address] [place] [address] 48973 Cyclosporineon 06-19-2023 cycloSPORINE (Bld) [Mass/Vol] 35 ng/mL Low 50-500 [facility] Comment on above: Result Comment: NOTE Optimal trough concentration: 50-500 ng/mL. These reference ranges are provided as a general recommendation. Individualized target levels for a given patient will depend on many factors (including the type of organ transplant, time since transplantation, concurrent medications, and other clinical factors), and should be assessed by those health care providers experienced in the management of immunosuppression. Reference ranges and high/low indicator flags are provided as general guidelines only. The treating physician must determine appropriate target levels/dosing based on the specific clinical situation. Test performed by chemiluminescent immunoassay using [employer]. Test Performed By: [facility] [employer] [address] [place] [address] Overhead Worker: Gary Ohara III #[id number] Performed By: #### C MP #### [facility] ([id number]) [address] [place] [address] #### [id number] #### [facility] ([id number]) [address] [facility] [place] [address] Follow-Upon 08-09-2022 Follow-Up [id number] Royce Wilkins 1980 F Date Provider Department Center 08/09/2022 [facility] Family History Problem Relation Age of Onset Hypertension Mother Family Status - Relation Status Age at Mother Alive Father Alive Level of Service:[address] [place] OFFICE/OUTPATIENT ESTABLISHED SF MDM 10-19 MIN () Reason for Visit and Comments: Follow-up [216164] Normal [facility] PAP ACOG PANEL 2: 30 to 65on 07-11-2022 . . Normal [facility] Comment on above: Result Comment: Perf ormed at: WB Performed By: #### [id number] #### [facility] [address] [place] [address] Dr. Bryan Campo Age Gdln ACOG Testing 30-65 Normal [facility] Comment on above: Performed By: #### [id number] #### [facility] [address] [address] [address] Bryan Campo DIAGNOSIS: Comment Normal [facility] Comment on above: Result Comment: NEGA TIVE FOR INTRAEPITHELIAL LESION OR MALIGNANCY. Performed at: WB Performed By: #### [id number] #### [facility] [address] [address] [address] Bryan Campo HPV Aptima Positive Abnormal Negative [facility] Comment on above: Result Comment: This nucleic acid amplification test detects fourteen high-risk HPV types (16,18,31,33,35,39,45,51,52,56,58,59,66,68) without differentiation. Performed at: =G Performed By: #### [id number] #### [facility] [address] [address] [address] Bryan Campo HPV Genotype 16 Negative Normal Negative [facility] Comment on above: Performed By: #### [id number] #### [facility] [address] [place] [address] Dr. Bryan Campo HPV Genotype 18,45 Negative Normal Negative [facility] Comment on above: Performed By: #### [id number] #### [facility] [address] [place] [address] Dr. Bryan Campo HPV Genotype Reflex Comment Normal [facility] Comment on above: Result Comment: Jhoana blackburn, see HPV Genotype results. Performed at: WB Performed By: #### [id number] #### [facility] [address] [place] [address] Dr. Bryan Campo Methodology: Comment Normal [facility] Comment on above: Result Comment: This liquid based ThinPrep(R) pap test was screened with the use of an image guided system. Performed at: WB Performed By: #### [id number] #### [facility] [address] [place] [address] Dr. Bryan Campo Note: Comment Normal [facility] Comment on above: Result Comment: The Pap smear is a screening test designed to aid in the detection of premalignant and malignant conditions of the uterine cervix. It is not a diagnostic procedure and should not be used as the sole means of detecting cervical cancer. Both false-positive and false-negative reports do occur. . Performed at: WB Performed By: #### [id number] #### [facility] [address] [place] [address] Dr. Bryan Campo Performed by: Comment Normal [facility] Comment on above: Result Comment: Svetlana Rivero, Lineman Service Or Work Dispatcher (ASCP) Performed at: WB Performed By: #### 4 [id number] #### [facility] [address] [place] [address] Dr. Bryan Campo Specimen adequacy: Comment Normal [facility] Comment on above: Result Comment: Sati sfactory for evaluation. Endocervical and/or squamous metaplastic cells (endocervical component) are present. Performed at: WB Performed By: #### [id number] #### [facility] [address] [place] [address] Dr. Bryan Campo Follow-Upon 06-28-2022 Follow-Up [id number] Royce Wilkins 1980 F Date Provider Department Center 06/28/2022 GASTON ABDI MP MPOTAYLOR Family History Problem Relation Age of Onset Hypertension Mother Family Status - Relation Status Age at Mother Alive Father Alive Level of Service:00879 [place] POSTOP FOLLOW UP VISIT RELATED TO ORIGINAL PX Reason for Visit and Comments: Follow-up [615130] [facility] Follow-Upon 05-17-2022 Follow-Up [id number] Royce Wilkins 1980 F Date Provider Department Center 05/17/2022 GASTON ABDI MP ORTHO DELFINARTHO No family history on file Level of Service:91437 [place] POSTOP FOLLOW UP VISIT RELATED TO ORIGINAL PX Reason for Visit and Comments: Follow-up [513511] [facility] Office Visiton 04-19-2022 Follow-up visit [id number] Royce Wilkins 1980 F Date Provider Department Center 04/19/2022 GASTON ABDI MP Chart Close Cosign Required by: Gaston Ko MD[[id number]] No family history on file Level of Service:15315 [place] POSTOP FOLLOW UP VISIT RELATED TO ORIGINAL PX (GC) Reason for Visit and Comments: Post-op [483] Pain [136] [facility] HPon 04-06-2022 HP History Of Present Illness Blessing Wilkins is a 41 y.o. female presenting with A 2-year history of right wrist pain. This began after she painted her house. She underwent a corticosteroid injection into the distal radial ulnar joint and that gave her relief of her symptoms for about 4 or 5 months. She presented recently with recurring pain. When I saw her she has some pain over the TFCC but also pain at the lunotriquetral joint with a shear test. Because of her persisting symptoms she was felt to be a candidate for an arthroscopic examination and then repair of structures as needed. Past Medical History She has a past medical history of Osteoarthritis. Surgical History She has a past surgical history that includes section, low transverse. Social History She reports that she has been smoking cigarettes. She started smoking about 20 years ago. She has a 10.00 pack-year smoking history. She has never used smokeless tobacco. She reports current alcohol use. She reports that she does not use drugs. Family History No family history on file. Allergies Penicillamine and Penicillamine (bulk) Medications Medications Prior to Admission Medication Sig Dispense Refill Last Dose ??? medroxyPROGESTERone (Depo-Provera) 150 mg/mL syringe injection syringe use as directed at physician's office every 3 months Past Month ??? valACYclovir (Valtrex) 500 mg tablet Take 1 tablet by mouth in the morning. Past Week Review of Systems Last Recorded Vitals Patient Vitals for the past 24 hrs: Temp Temp src Pulse Resp SpO2 Height Weight 04/06/22 0700 36.2 ???C (97.2 ???F) Temporal 69 16 100 % 1.778 m (5' 10 ) 77 kg (169 lb 12.1 oz) Physical Exam Constitutional: Appearance: Normal appearance. Cardiovascular: Rate and Rhythm: Normal rate. Pulmonary: Effort: Pulmonary effort is normal. Abdominal: Palpations: Abdomen is soft. Musculoskeletal: Right wrist: No swelling or deformity. Comments: there is tenderness to palpation over the tip of the ulnar styloid and the TFCC insertion. She does have some pain with a shear test. There is no significant pain on the radial aspect of the wrist. She has full digital and thumb range of motion. Neurovascular status grossly intact Neurological: Mental Status: She is alert. Relevant Lab Results No results found for: NA, K, CL, CO2, BUN, CREATININE, GLUCOSE, CALCIUM, ANIONGAP, EGFR, BCR Relevant Imaging Results XR wrist 1 or 2 views right Narrative: [facility] Department of Radiology [address] [place] [id number] == Patient Name: BLESSING WILKINS : 1980 Sex: F Age: Race: White^White Pt. Location: Patient Status: D Ordered Date: 01/24/2022 11:10:00 AM Completed Date: 01/24/2022 11:15 AM Requesting Provider: GASTON KO Attending Provider: GASTON KO Report Copy To: Signs & Symptoms: M19.039 Primary osteoarthritis, unspecified wrist I10 History: Comments: Evaluate Exam: WRIST RIGHT 2 VWS == WRIST RIGHT 2 VWS 01/24/2022 11:15 AM CLINICAL INDICATIONS: M19.039 Primary osteoarthritis, unspecified wrist I10 TECHNOLOGIST COMMENTS: Patient states medial right wrist pain for over a year. No trauma. QUESTION FOR THE RADIOLOGIST: Evaluate PROTOCOL: AP(PA) and Lateral views were obtained. COMPARISON: None FINDINGS: No acute fracture or dislocation. Joint spaces well-maintained. Perhaps slight negative ulnar variance. Normal alignment on lateral view. Soft tissues unremarkable. Impression: No acute osseous abnormality. Electronically signed: NYA LOPEZ. Transcribed by: [email or web address], User Resident: Electronically Signed by: NYA LOPEZ @ 01/25/2022 06:47 PM Assessment/Plan Principal Problem: Luno-triquetral instability of right wrist arthroscopic examination of the right wrist and repair of structures as necessary Normal [facility] OPNOTEon 04-06-2022 OPNOTE Generic OP Note Pre-operative Diagnosis: ulnar-sided right wrist pain with possible lunotriquetral ligament injury Post-operative Diagnosis: type Ib TFCC tear right wrist Operation: Arthorscopic Exam right Wrist (85272 -scope, 35337 -tfcc) repair of the triangular fibrocartilage right wrist Surgeon: Gaston Ko MD Engineering Job Titles: Jeffrey Barney Anesthesia: Regional Indications: The patient is an 41 y.o. female with pain in the right wrist. this is been present for about 2 years. She had temporary improvement of symptoms after a corticosteroid injection into the distal radial ulnar joint. Because of persistent symptoms despite nonoperative means of treatment, there felt to be a candidate for an arthroscopic examination of the wrist. They are brought to the operating room today for that purpose. The risks and benefits were explained prior to surgery and with good understanding it is agreed to proceed. Surgeon: Gaston Ko MD Anesthesia: Anesthesia type not filed in the log. ASA Class: II Procedure: The patient is taken to the operating room and placed on the table in a supine position. An axillary block had been administered per the anesthesia service in the holding area. A tourniquet is placed around the proximal right arm. Preoperative antibiotics were given. The upper extremity is then prepped and draped out in a sterile fashion. To begin the procedure, after a standard timeout, the arm is exsanguinated with an Esmarch bandage and the tourniquet is inflated to 250 mmHg. The arm is suspended from a concept wrist tower with fingertrap traction on the long and ring fingers. The radiocarpal joint is distended using 2 cc of normal saline solution. Using a #11 blade, a standard 3-4 portal was created and the arthroscope was inserted. We began her exam at the radial styloid. The radial styloid and scaphoid fossa are pristine. The scapholunate ligament has a nice normal concavity. The lunate fossa looks normal. As we get to the ulnar side of the wrist there is some fraying of the central TFCC and some synovitis on the dorsal capsule. There is a peripheral rent in the TFCC that looks a bit larger than the normal ulnar recess. Using a 25-gauge needle and a 6R portal was created after was localized. A probe was inserted. There is a positive hook sign where I can get under the TFCC and lifted up off of its ulnar attachment in the fovea. A full-radius shaver was inserted into the joint we just debrided some of the fibrillated cartilage and roughened up the edge of the tear in the TFCC. The dorsal capsular synovial tissue was debrided. A zone specific cannula was selected and placed into the portal. A 2-0 FiberWire suture on meniscal needles was used placed across the tear in simple fashion. The needles were passed out through the skin ulnarly. I made a 1-1/2 cm longitudinal incision between the exit points of the 2 sutures. I did dissected down to the capsule with a hemostat and retrieved, and then tied the suture over the capsule. Care was taken to make sure no soft tissues were trapped under the suture. We then turned our attention to the midcarpal joint. We had good working portals at the radiocarpal level, so midcarpal portals were created 1 cm distal and slightly closer to the midline. Both portals were dilated with a trocar. The scope was inserted into the ulnar portal and a probe into the radial portal. We had excellent visualization of the entire midcarpal joint. With traction on the thumb there is just very slight motion at the scapholunate joint. The joint is stable with probing but I can get the tip of the probe into the joint slightly. When we come over to the lunotriquetral joint, there is absolutely no motion with traction on the small finger. A probe cannot be inserted into the joint at all. Everything in the midcarpal joint looks normal aside from that. The arthroscopic equipment was removed. The portals were closed with 5-0 Novafil suture. A sterile dressing of Xeroflo gauze, 4 x 4 fluffs, Webril and a ulnar gutter splint is applied. The tourniquet is released. The arm is released from the wrist tower and the finger traps were removed. The drapes were taken down and the arm was placed into a sling because of the regional block. All sponge and needle counts were correct at time of closure. The patienent was brought to the recovery area in stable condition, having tolerated the procedure well. Findings: Type Ib TFCC tear right wrist Estimate Blood Loss: Minimal Specimens: None Implants: none Complications: None Condition: Good Normal [facility] POCT GLUCOSE METER UNSOLICIT ED RESULTSon 04-06-2022 Glucose [Mass/Vol] 91 mg/dL Normal 70-105 [facility] Comment on above: Result Comment: [facility] Performed By: #### L [id number] ####[facility] ([facility])[address] [place] [address] SARS-COV-2 TMAon 04-03-2022 SARS-CoV-2 (COVID-19) RNA BRIANDA+probe Ql (Unsp spec) Not detected Normal Not Detected [facility] Comment on above: Result Comment: Not detected does not preclude SARS-CoV-2 infection and should not be used as the sole basis for patient management decisions. Not detected results must be combined with clinical observations, patient history, and epidemiological information. The Aptima SARS-CoV-2 assay is a nucleic acid amplification test intended for the qualitative detection of RNA from SARS-CoV-2 isolated and purified from nasopharyngeal (ALLERGY PHYSICIAN), oropharyngeal (OP), nasal swab, sputum, and bronchoalveolar lavage (BAL) specimens from patients with signs and symptoms of infection who are suspected of COVID-19. Results are for the identification of SARS-CoV-2 RNA. The SARS-CoV-2 RNA is generally detectable during the acute phase of infection. The Aptima SARS-CoV-2 Assay on the [employer] Fusion system is intended for use by laboratory personnel specifically instructed and trained in the operation of the [employer] Fusion system. The Aptima SARS-CoV-2 assay is only for use under the Food and Drug Administration Emergency Use Authorization. Testing is limited to laboratories certified under the Clinical Laboratory Improvement Amendments of 1988 (CLIA), 42 U.S.C. ???263a, to perform high complexity tests. Performed By: #### L [id number] ####[facility] ([facility])[address] [place] [address] Orders Onlyon 03-31-2022 Orders Only [id number] Royce Wilkins 1980 F Date Provider Department Center 03/31/2022 NIMO MOORE [facility] C No family history on file Normal [facility] Prep for Procedureon 022 Prep for Procedure [id number] Royce Wilkins 1980 F Date Provider Department Center 03/15/2022 GASTON ABDI MP ORTHO MPORTHO No family history on file Normal [facility] WRIST RIGHT 2 VWSon 01-25-20 22 WRIST RIGHT 2 S [facility] Department of Radiology [address] [place] [address] == Patient Name: BLESSING WILKINS : 1980 Sex: F Age: Race: White Pt. Location: Patient Status: D Ordered Date: 01/24/2022 11:10:00 AM Completed Date: 01/24/2022 11:15 AM Requesting Provider: GASTON KO Attending Provider: GASTON KO Report Copy To: Signs & Symptoms: M19.039 Primary osteoarthritis, unspecified wrist I10 History: Comments: Evaluate Exam: WRIST RIGHT 2 VWS == WRIST RIGHT 2 VWS 01/24/2022 11:15 AM CLINICAL INDICATIONS: M19.039 Primary osteoarthritis, unspecified wrist I10 TECHNOLOGIST COMMENTS: Patient states medial right wrist pain for over a year. No trauma. QUESTION FOR THE RADIOLOGIST: Evaluate PROTOCOL: AP(PA) and Lateral views were obtained. COMPARISON: None FINDINGS: No acute fracture or dislocation. Joint spaces well-maintained. Perhaps slight negative ulnar variance. Normal alignment on lateral view. Soft tissues unremarkable. IMPRESSION: No acute osseous abnormality. Electronically signed: NYA LOPEZ. Transcribed by: [email or web address], User Resident: Electronically Signed by: NYA LOPEZ @ 01/25/2022 06:47 PM Normal [facility] Comment on above: Order Comment: Evalu ate Vital Signs Date Time Vital Sign Value Performing Clinician Facility 05-23-2024 15:25050 Body height 177.8 cm [facility] Quint[facility]illa MD [facility] 05-23-2024 15:25050 Body mass index (BMI) [Ratio] 22.24 kg/m2 Junior Quintanilla MD [facility] 05-23-2024 15:25050 Body weight 70.31 kg Junior Quintanilla MD [facility] 05-23-2024 15:25-050 Diastolic blood pressure 80 mm[Hg] Junior Quintanilla MD Work Phone: [facility] 05-23-2024 15:25-0500 Heart rate 80 /min Junior Quintanilla MD Work Phone: [facility] 05-23-2024 15:25-0500 Respiratory rate 16 /min Junior Quintanilla MD Work Phone: [facility] 05-23-2024 15:25-0500 Systolic blood pressure 100 mm[Hg] Junior Quintanilla MD Work Phone: [facility] 08-09-2023 09:00-0500 Body mass index (BMI) [Ratio] 26.4 kg/m2 Leila Cabrera PA Work Phone: [facility] 08-09-2023 09:00-0500 Body weight 83.46 kg Leila Rick PA Work Phone: [facility] 08-09-2023 09:00-0500 Diastolic blood pressure 74 mm[Hg] Leila Rick PA Work Phone: [facility] 08-09-2023 09:00-0500 Systolic blood pressure 116 mm[Hg] Leila Rick PA Work Phone: [facility] 08-02-2023 09:27-0500 Diastolic blood pressure 62 mm[Hg] Aby Del Rosario MD Work Phone: [facility] 08-02-2023 09:27-0500 Systolic blood pressure 117 mm[Hg] Aby Del Rosario MD Work Phone: [facility] 07-11-2023 15:49-0500 Body height 177.8 cm Junior Quintanilla MD Work Phone: [facility] 07-11-2023 15:49-0500 Body mass index (BMI) [Ratio] 26.11 kg/m2 Junior Quintanilla MD Work Phone: [facility] 07-11-2023 15:49-0500 Body temperature 98.49 [degF] Junior Quintanilla MD Work Phone: [facility] 07-11-2023 15:49-0500 Body weight 82.56 kg Junior Quint[facility]illa MD [facility] 07-11-2023 15:49-0500 Diastolic blood pressure 80 mm[Hg] Junior Quintanilla MD Work Phone: [facility] 07-11-2023 15:49-0500 Heart rate 88 /min Junior Quintanilla MD Work Phone: [facility] [employer] 07-11-2023 15:49-0500 Respiratory rate 16 /min Junior Quintanilla MD [facility] 07-11-2023 15:49-0500 Systolic blood pressure 130 mm[Hg] Junior Quintanilla MD Work Phone: [facility] Encounters Encounter Date Encounter Type Care Provider Facility Start: 07-18-2024 End: 07-18-2024 ambulatory ABY DEL ROSARIO Not Available Start: 06-16-2024 End: 06-16-2024 Orders Only Aby Del Rosario MD Work Phone: [facility] Comment on above: Chronic idiopathic u rticaria (Primary Dx) Start: 05-23-2024 End: 05-23-2024 ambulatory JUNIOR QUINTANILLA [facility] Start: 05-23-2024 End: 05-23-2024 Office outpatient visit 15 minutes Junior Quintanilla MD Work Phone: [facility] Comment on above: Anxiety (Primary Dx) ; Dysphonia Start: 04-25-2024 End: 04-25-2024 Patient encounter procedure Katy Zambrano DO Work Phone: [facility] Comment on above: Encounter for survei llance of injectable contraceptive; Depo-Provera contraceptive status; Encounter for management and injection of depo-Provera Start: 04-25-2024 End: 04-25-2024 ambulatory ABY DEL ROSARIO Not Available Start: 04-21-2024 End: 04-21-2024 Bamboo flowsheet Aby Del Rosario MD Work Phone: [facility] Start: 04-21-2024 End: 04-21-2024 Bamboo flowsheet Aby Del Rosario MD Work Phone: [facility] Start: 04-21-2024 End: 04-21-2024 Office outpatient visit 15 minutes Aby Del Rosario MD Work Phone: [facility] Comment on above: Chronic idiopathic u rticaria (Primary Dx) Start: 04-21-2024 End: 04-21-2024 ambulatory ABY E RAMBASEK Not Available Start: 04-18-2024 End: 04-18-2024 ambulatory ABY Contreras [facility] Start: 02-25-2024 End: 02-25-2024 ambulatory WENDI SKAGGS [facility] Start: 02-20-2024 End: 02-20-2024 Office outpatient visit 15 minutes Aby Del Rosario MD Work Phone: [facility] Comment on above: Chronic idiopathic u rticaria (Primary Dx) Start: 02-20-2024 End: 02-20-2024 ambulatory ABY E RAMBASEK Not Available Start: 02-20-2024 End: 02-20-2024 Bamboo flowsnick Del Rosario MD Work Phone: [facility] Start: 02-20-2024 End: 02-20-2024 Bamboo flowsnick Del Rosario MD Work Phone: [facility] Start: 02-15-2024 End: 02-15-2024 ambulatory ABY E RAMBASEK [facility] Start: 02-01-2024 End: 02-01-2024 ambulatory ABY RAMBASEK Not Available Start: 01-23-2024 End: 01-23-2024 ambulatory ABY E RAMBASEK Not Available Start: 01-18-2024 End: 01-18-2024 ambulatory ABY E RAMBASEK [facility] Start: 01-15-2024 End: 01-15-2024 ambulatory JUNIOR QUINTANILLA [facility] Start: 12-26-2023 End: 12-26-2023 ambulatory ABY E RAMBASEK Not Available Start: 12-21-2023 End: 12-21-2023 ambulatory ABY E RAMBASEK [facility] Start: 12-18-2023 End: 12-18-2023 ambulatory [facility] Start: 12-10-2023 End: 12-10-2023 ambulatory REHAB [facility] Start: 11-30-2023 End: 11-30-2023 ambulatory JUNIOR Sen [facility] Start: 11-28-2023 End: 11-28-2023 ambulatory ABY E RAMBASEK Not Available Start: 11-23-2023 End: 11-23-2023 ambulatory ABY E RAMBASEK [facility] Start: 11-16-2023 End: 11-16-2023 ambulatory ABY RAMBASEK Not Available Start: 11-12-2023 End: 11-12-2023 ambulatory [facility] Start: 11-11-2023 End: 11-12-2023 Emergency department patient visit [facility] Start: 11-06-2023 End: 11-06-2023 ambulatory KIYA E SALMON [facility] Start: 10-31-2023 End: 10-31-2023 ambulatory ABY E RAMBASEK Not Available Start: 10-26-2023 End: 10-26-2023 ambulatory [facility] Start: 10-02-2023 Ian Crow MD Work Phone: [facility] Comment on above: Chronic idiopathic u rticaria Start: 10-01-2023 End: 10-01-2023 ambulatory ABY E RAMBASEK Not Available Start: 09-25-2023 End: 09-25-2023 ambulatory [facility] Start: 09-03-2023 End: 09-03-2023 ambulatory ABY E RAMBASEK Not Available Start: 08-31-2023 Telephone encounter Scanning Katina Howadr [facility] Start: 08-28-2023 End: 08-28-2023 ambulatory ABY E RAMBASEK [facility] Start: 08-27-2023 End: 08-27-[address] [facility] Start: 08-24-2023 End: 08-24-2023 ambulatory ABY DEL ROSARIO Not Available Start: 08-09-2023 Clinisync Result Encounter Leila MAN Work Phone: [facility] Unsolicited Start: 08-09-2023 Clinisync Result Encounter Leila MAN Work Phone: [facility] Unsolicited Start: 08-09-2023 End: 08-09-2023 Patient encounter procedure Leila MAN Work Phone: [facility] Work Phone: Start: 08-09-2023 End: 08-09-2023 Periodic preventive med est patient 40-64yrs Leila MAN Work Phone: [facility] Comment on above: Well woman exam with routine gynecological exam; Breast cancer screening by mammogram Start: 08-09-2023 End: 08-09-2023 ambulatory LEILA CABRERA Not Available Start: 08-07-2023 Refill Aby valerio MD Work Phone: [facility] Comment on above: Chronic idiopathic u rticaria; Encounter for fdc current cyclosporin A therapy Start: 08-02-2023 End: 08-02-2023 Office outpatient visit 15 minutes Aby Del Rosario MD Work Phone: [facility] Comment on above: Chronic idiopathic u rticaria (Primary Dx) Start: 08-02-2023 End: 08-02-2023 ambulatory ABY DEL ROSARIO Not Available Start: 07-30-2023 End: 07-30-2023 ambulatory ABY DEL ROSARIO [facility] Start: 07-16-2023 End: 07-16-2023 ambulatory ABY DEL ROSARIO [facility] Start: 07-11-2023 End: 07-11-2023 Office outpatient visit 15 minutes Junior Quintanilla MD Work Phone: [facility] Comment on above: Chronic urticaria (P rimary Dx); Other acute sinusitis, recurrence not specified; Acute mucoid otitis media of right ear Start: 07-11-2023 End: 07-11-2023 ambulatory JUNIOR Chatterjee YESSI [facility] Start: 06-29-2023 End: 06-29-2023 ambulatory ABY DEL ROSARIO [facility] Start: 06-19-2023 End: 06-19-2023 ambulatory JUNIOR QUINTANILLA [facility] Start: 08-09-2022 ambulatory [facility] Start: 07-21-[address] KATY ZAMBRANO Facility :[facility]1 Start: 07-05-2022 End: 07-05-[address] KATY ZAMBRANO Facility:[facility] Start: 06-28-2022 ambulatory [facility] Start: 05-17-2022 ambulatory [facility] Start: 04-19-2022 ambulatory [facility] Start: 04-06-2022 End: 04-06-2022 ambulatory [facility] Start: 04-03-2022 End: 04-03-2022 ambulatory [facility] Start: 04-03-2022 End: 04-03-2022 Encounter for preprocedural laboratory examination [facility] Procedures Date Procedure Procedure Detail Performing Clinician Start: 05-23-2024 Adult depression scr eening assessment Junior Quintanilla MD Work Phone: Start: 04-25-2024 Urine test visual color cmprsn meths Katy Zambrano DO Work Phone: Start: 11-12-2023 Follow-up visit Follow-up JUNIOR QUINTANILLA Start: 08-09-2023 IGP,APTIMA HPV,AGE GDLN Leila MAN Work Phone: Start: 07-11-2023 Adult depression scr eening assessment Junior Quintanilla MD Work Phone: Start: 07-05-2022 Microscopic observat ion [Identifier] in Cervix by Cyto stain Junior Quintanilla MD Work Phone: Plan of Treatment Date Care Activity Detail Author Start: 07-05-2025 Screening for malign ant neoplasm of cervix Pap Smear [facility] Start: 05-23-2025 Adult BMI Screening Adult BMI Screen ing [facility] Start: 05-23-2025 Depression Screening Depression Scre ening [facility] Start: 05-23-2025 Tobacco Screening Tobacco Screening [facility] Start: 11-03-2024 End: 11-03-2024 Patient encounter procedure 11/03/2024 3:30 PM EDT Office Visit [facility] [address] [facility] [address] [address] [facility] Start: 08-27-2024 Adult BMI Screening Adult BMI Screen ing [facility] Start: 08-27-2024 Tobacco Screening Tobacco Screening [facility] Start: 08-21-2024 End: 08-21-2024 Patient encounter procedure 08/21/2024 8:15 AM EST Office Visit [facility] [address] [phone] Kiya Salmon MD [address] [facility] [address] [place] [address] [facility] Start: 08-13-2024 End: 08-13-2024 Telemedicine consultation with patient 08/13/2024 12:00 PM EST Telemedicine [facility] [address] [address] Aby Del Rosario MD [address] [address] [facility] Start: 08-11-2024 End: 08-11-2024 Patient encounter procedure 08/11/2024 10:00 AM EST Office Visit [facility] [address] [place] [id number] Leila Cabrera PA [address] [place] [address] [facility] Start: 07-18-2024 End: 07-18-2024 Clinical Support [facility] Start: 07-11-2024 Adult BMI Screening Adult BMI Screen ing [facility] Start: 07-11-2024 Depression Screening Depression Scre ening [facility] Start: 07-11-2024 Tobacco Screening Tobacco Screening [facility] Start: 04-25-2024 End: 04-25-2024 Clinical Support 04/25/2024 9:10 AM EDT Clinical Support [facility] [address] [place] [address] [facility] Start: 04-21-2024 End: 04-21-2024 Telemedicine consultation with patient [facility] Comment on above: Arrived Start: 04-02-2024 End: 04-02-2024 Clinical Support 04/02/2024 9:10 AM EDT Clinical Support [facility] [address] [place] [address] [facility] Start: 03-02-2024 COVID-19 Vaccine ( season) COVID-19 Vaccine ( season) [facility] Start: 03-02-2024 Influenza vaccination Influenza Vacc ine [facility] Start: 02-25-2024 End: 02-25-2024 Patient encounter procedure 02/25/2024 8:30 AM EDT Office Visit [facility] [address] [facility] [address] [place] [address] Wendi Skaggs, PLANNING [employer] [address] [place] [address] [facility] Start: 02-20-2024 End: 02-20-2024 Telemedicine consultation with patient 02/20/2024 4:00 PM EDT Telemedicine [facility] [address] [place] [address] Aby Del Rosario MD [address] [place] [address] Arrived [facility] Comment on above: Arrived Start: 09-03-2023 End: 09-03-2023 Patient encounter procedure 09/03/2023 9:00 AM EST Office Visit [facility] [address] [place] [phone] Aby Del Rosario MD [address] [place] [address] [facility] Start: 08-27-2023 End: 08-27-2023 Patient encounter procedure 08/27/2023 9:00 AM EST Office Visit [facility] [address] [place] [phone] Kiya Salmon MD [address] [place] [address] [facility] Start: 08-24-2023 End: 08-24-2023 Clinical Support 08/24/2023 9:20 AM EST Clinical Support [facility] [address] [facility] [address] [facility] Start: 08-09-2023 End: 10-07-2024 MG Breast - bilateral Screening Bilateral screening mammogram Imaging Routine Breast cancer screening by mammogram Expected: 08/09/2023 (Approximate), Expires: 10/07/2024 [facility] Work Phone: Comment on above: Expected: 08/09/2023 (Approximate), Expires: 10/07/2024 Start: 08-09-2023 End: 08-09-2023 Patient encounter procedure [facility] Comment on above: Well woman exam with routine gynecological exam Start: 03-02-2023 COVID-19 Vaccine ( season) COVID-19 Vaccine ( season) [facility] Start: 03-02-2023 Influenza vaccination Influenza Vacc ine [facility] Start: 03-19-2022 DTaP,Tdap and Td Vaccines (2 - Td or Tdap) DTaP,Tdap and Td Vaccines (2 - Td or Tdap) [facility] Start: 2002 Screening for malign ant neoplasm of cervix Pap Smear [facility] Start: 10-28-1999 Adult BMI Follow Up Plan Adult BMI Follow Up Plan 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 Comment on above: 1 Occurrences starti ng 09/04/2023 until 09/03/2024 Immunizations Immunization Date Immunization Notes Care Provider [facility] 05-02-2019 influenza, injectabl e, quadrivalent, preservative free Junior Quintanilla MD Work Phone: [facility] 05-02-2019 influenza virus vaccine, unspecified formulation Junior Quintanilla MD Work Phone: [facility] 03-19-2012 tetanus toxoid, redu melanie diphtheria toxoid, and acellular pertussis vaccine, adsorbed Junior Quintanilla MD Work Phone: [facility] Payers Date Payer Category [facility] [id number] 2022 [employer] [address] [employer] - PPO ANTHEM [id number] 2022 Unknown [id number]. 1.13.693. 2.7.3.494871.315 1981 Unknown [id number] 2.16840.1.252091.3.579. 2.593 1981 Unknown [id number] 2.16840.1.031914.3.579. 2.593 1981 Unknown [id number] 2.16840.1.500217.3.579. 2.128 1981 Unknown [id number] 2.16840.1.519558.3.579. 2.128 1981 Unknown [id number] 2.16840.1.274349.3.579. 2.1285 1981 Unknown [id number] 2.16840.1.250916.3.579. 2.1285 1981 Unknown [id number] 2.16840.1.474789.3.579. 2.128 1981 Unknown [id number] 2.16.840.1.212690.3.579. 2.1285 1981 Unknown [id number] .0.1.166820.3.579. 2.1285 1981 Unknown [id number] 2.840.1.242153.3.579. 2.1285 1981 Unknown [id number] 2.1.827555.3.579. 2.1285 1981 Unknown [id number] 2.0.1.631865.3.579. 2.1285 1981 Unknown [id number] .1.502048.3.579. 2.1285 1981 Unknown [id number] 2..1.474021.3.579. 2.1285 1981 Unknown [id number] .1.741357.3.579. 2.1285 1981 Unknown [id number] .1.112435.3.579. 2.1285 1981 Unknown [id number] .1.560811.3.579. 2.1285 1981 Unknown [id number] .1.051274.3.579. 2.1285 1981 Unknown [id number] .1.786476.3.579. 2.1285 1981 Unknown [id number] 08.17.830.1.008077.3.579. 2.1285 1981 Unknown [id number] .1.628603.3.579. 2.1285 1981 Unknown [id number] 840.1.681878.3.579. 2.1285 1981 Unknown [id number] 08.17.830.1.950164.3.579. 2.1285 1981 Unknown [id number] .1.281198.3.579. 2.1285 1981 Unknown [id number] 2.16840.1.591570.3.579. 2.1285 1981 Unknown [id number] 2.16840.1.209232.3.579. 2.1285 1981 Unknown [id number] 2.840.1.911703.3.579. 2.1258 1981 Unknown [id number] 2.840.1.734283.3.579. 2.1258 1981 Unknown [id number] .840.1.647580.3.579. 2.1258 1981 Unknown [id number] 2.0.1.737722.3.579. 2.1258 1981 Unknown [id number] 20.1.376193.3.579. 2.1258 1981 Unknown [id number] 2.840.1.253209.3.579. 2.1258 1981 Unknown [id number] 840.1.004662.3.579. 2.1258 1981 Unknown [id number] 2.840.1.377469.3.579. 2.1258 1981 Unknown [id number] 08.17.830.1.632503.3.579. 2.1258 1981 Unknown [id number] .840.1.440271.3.579. 2.1258 1981 Unknown [id number] 2.840.1.621136.3.579. 2.1258 1981 Unknown [id number] 2.840.1.037771.3.579. 2.1258 1981 Unknown [id number] 2.840.1.690997.3.579. 2.1258 1981 Unknown [id number] 2840.1.399848.3.579. 2.1259 1981 Unknown [id number] 2.16.840.1.866109.3.579. 2.1259 1959 Unknown [id number] Social History Date Type Detail Facility Start: 08-31-2022 End: 05-14-2023 Tobacco smoking status NHIS Ex-smoker [facility] End: 07-05-2022 History of tobacco use Current smoker [facility] End: 07-05-2022 History of tobacco use Cigarette Smoker [facility] Start: 08-31-2022 End: 05-14-2023 Tobacco use and exposure Smokeless tobacco non-user [facility] Start: 08-02-2023 End: 02-20-2024 Alcohol intake Ex-drinker (finding) [facility] Start: 07-27-2020 End: 07-19-2023 History of Social function [facility] Start: 07-27-2020 End: 07-19-2023 Tobacco use panel [facility] Start: 1980 Sex Assigned At Female [facility] Start: 12-22-2022 Gender identity Identifies as female gender (finding) [facility] Start: 07-11-2023 End: 08-27-2023 Alcohol intake Current drinker of alcohol (finding) [facility] Frequency of Communication with Friends and Family Three times a week [facility] Start: 1980 Sex Assigned At Not on file [facility] Start: 08-31-2023 Alcohol Comment occasional [facility] How hard is it for y ou to pay for the very basics like food, housing, medical care, and heating Not very hard [facility] Start: 12-10-2023 Alcohol Comment Socially [facility] Start: 02-04-2015 Sex Female (finding) [facility] Start: 12-09-2023 Sexual orientation Heterosexual (finding) [facility] Clinical Notes 04-06-2022 to 05-23-2024 Junior Quintanilla MD - 05/23/2024 3:15 PM Gustavo Delacruz LPN - 04/25/2024 9:10 AM Hilda Del Rosario MD - 04/21/2024 12:00 PM Hilda Del Rosario MD - 02/20/2024 4:00 PM EDT Note Date & Type Note Facility 05-23-2024 History of Present illness Narrative Images from the original note were not included. [address] [place] [id number] SUBJECTIVE: Patient ID: Blessing Wilkins is a 43 y.o. female. 43 yo WF with recheck anxiety under control with zoloft, hives appear to under control, The following portions of the patient's history were reviewed and updated as appropriate: allergies, current medications, past family history, past medical history, past social history, past surgical history and problem list. REVIEW OF SYSTEMS: Review of Systems Respiratory: Negative. Cardiovascular: Negative. Gastrointestinal: Negative. Genitourinary: Negative. Allergic/Immunologic: Negative for environmental allergies and food allergies. Psychiatric/Behavioral: The patient is not nervous/anxious. PHYSICAL EXAMINATION: Vitals: 05/23/24 1525 BP: 100/80 BP Site: Left Arm BP Postition: Sitting BP CUFF SIZE: M (9-13 inches) Pulse: 80 Resp: 16 Weight: 70.3 kg (155 lb) Height: 177.8 cm (5' 10 ) Physical Exam Vitals and nursing note reviewed. Constitutional: Appearance: Normal appearance. HENT: Head: Normocephalic and atraumatic. Eyes: Extraocular Movements: Extraocular movements intact. Pupils: Pupils are equal, round, and reactive to light. Cardiovascular: Rate and Rhythm: Normal rate and regular rhythm. Pulses: Normal pulses. Heart sounds: Normal heart sounds. Pulmonary: Effort: Pulmonary effort is normal. Breath sounds: Normal breath sounds. Skin: General: Skin is warm and dry. Neurological: General: No focal deficit present. Mental Status: She is alert and oriented to person, place, and time. Psychiatric: Mood and Affect: Mood normal. Behavior: Behavior normal. ASSESSMENT/PLAN: Vielka was seen today for routine check up. Diagnoses and all orders for this visit: Anxiety Dysphonia Follow-up: Zoloft 100mg qd documented in this encounter [facility] 04-25-2024 History of Present illness Narrative Reason for Appointment: Patient ID: Vielka Wilkins is a 43 y.o. female who presents for Depo injection Patient presents today for a nurse visit to obtain Depo injection. Current Medications: has a current medication list which includes the following prescription(s): cetirizine, cyclosporine, epinephrine, famotidine, hydroxyzine pamoate, medroxyprogesterone, xolair, and valacyclovir, and the following Facility-Administered Medications: medroxyprogesterone and medroxyprogesterone. Allergies Allergen Reactions Penicillamine Unknown Other Reaction(s): Not available Penicillins Unknown Vitals: Estimated body mass index is 24.11 kg/m as calculated from the following: Height as of 09/03/23: 5' 10 . Weight as of 02/01/24: 168 lb. BP: No LMP recorded. Assessment/Plan Encounter Diagnoses Name Primary? Encounter for surveillance of injectable contraceptive Depo-Provera contraceptive status Encounter for management and injection of depo-Provera Patient presents today for injection of Depo-Provera. Patients urine test today was negative. Depo injection was given intramuscularly via left buttocks Prior to administering the injection, the site was properly cleansed and time was allotted for the area to dry. Follow up: Patient is to return in 12 weeks for another Depo injection Documented by Dr. Katy Zambrano & Leila Cabrera PA-C Nursing Staff: Jayde Delacruz LPN documented in this encounter [facility] 04-21-2024 History of Present illness Narrative Permission to treat on telemedicine obtained. The patient took the call from her place of work. I took the call from my personal residence. The patient reports that she continues to use cyclosporin 25 mg daily and Xolair 300 mg every 4 weeks. She finds this regimen extremely beneficial for her hives and she has had few if any hives since we last saw her in the office. Her labs are normal and creatinine is 0.76. Her BP today is 109/73. Her last episode of hives was over 8 months ago. She has been usign Cetirizine 10 mg every day and famotidine 20 mg every day. The patient appears comfortable during the video visit today. Her BP is 109/73. Breathing is unlabored and regular. The oral mucosa is pink and healthy without any lesions or ulcers. There is no supraclavicular cervical or axillary lymphadenopathy. The skin is clear of any rashes, lesions, or ulceration/excoriation. IMPRESSION - chronic idiopathic urticaria - stop cyclosporin on July 02 2024. Continue xolair every 4 weeks at home. Continue antihistamines. Follow-up in mid Aug. documented in this encounter [facility] 02-20-2024 History of Present illness Narrative Permission to treat on telemedicine obtained. I took the call from my [employer] [facility] office and the patient took the call from her place of work. Her last hives occurred many months ago. She has no side effects from cyclosporin or xolair. The patient reports that she continues to use cyclosporin 25 mg daily and Xolair 300 mg every 4 weeks. She finds this regimen extremely beneficial for her hives and she has had few if any hives since we last saw her in the office. Her labs are normal and creatinine is 0.88 The patient appears comfortable during the video visit today. Her BP is 130/80 Breathing is unlabored and regular. The oral mucosa is pink and healthy without any lesions or ulcers. There is no supraclavicular cervical or axillary lymphadenopathy. The skin is clear of any rashes, lesions, or ulceration/excoriation. IMPRESSION: chronic idiopathic urticaria - no refills labs in 6 weeks Just creatinine. Follow-up 2 months or sooner if problems arise. As she is having an excellent clinical response to cyclosporin and Xolair we agreed to continue both of these medications. documented in this encounter [facility] 10-02-2023 Miscellaneous Notes Patient mychart request. Patient was last seen in office on 12/26/22. I called and left a voicemail to schedule a follow up 10/04 KF documented in this encounter [facility] 10-02-2023 Telephone encounter Note Patient mychart request. Patient was last seen in office on 12/26/22. I called and left a voicemail to schedule a follow up 10/04 KF [facility] 08-31-2023 Miscellaneous Notes Pt would like to talk to you about labs Discussed with patient. She has chronic urticaria and positive TPO antibodies. Will start low-dose levothyroxine. Script sent to pharmacy. Patient reminded to have blood work redrawn in 2 months. documented in this encounter [facility] 08-31-2023 Telephone encounter Note Pt would like to talk to you about labs [facility] 08-31-2023 Telephone encounter Note Discussed with patient. She has chronic urticaria and positive TPO antibodies. Will start low-dose levothyroxine. Script sent to pharmacy. Patient reminded to have blood work redrawn in 2 months. [facility] 08-09-2023 History of Present illness Narrative Reason for Appointment: Patient ID: Vielka Wilkins is a 42 y.o. female who presents for Well Women Visit Patient presents today for Annual Exam appointment. Current Medications: has a current medication list which includes the following prescription(s): epinephrine, cetirizine, cyclosporine modified, medroxyprogesterone, xolair, and valacyclovir, and the following Facility-Administered Medications: medroxyprogesterone. Medical History: Active Ambulatory Problems Diagnosis Date Noted No Active Ambulatory Problems Resolved Ambulatory Problems Diagnosis Date Noted No Resolved Ambulatory Problems Past Medical History: Diagnosis Date BMI 26.0-26.9,adult Breast lesion Encounter for Depo-Provera contraception Encounter for gynecological examination (general) (routine) without abnormal findings Herpes Negative test Family History Problem Relation Name Age of Onset Hyperlipidemia Father Hyperlipidemia Sister Social History Tobacco Use Smoking status: Former Types: Cigarettes Smokeless tobacco: Never Substance Use Topics Alcohol use: Not Currently Drug use: Never Past Surgical History: Procedure Laterality Date SECTION, LOW TRANSVERSE 2012 MOLE REMOVAL WRIST SURGERY Right cartilage repair Allergies Allergen Reactions Penicillamine Unknown Other Reaction(s): Not available Penicillins Unknown Review of Systems: Review of Systems Constitutional: Negative. HENT: Negative. Eyes: Negative. Respiratory: Negative. Cardiovascular: Negative. Gastrointestinal: Negative. Genitourinary: Negative. Musculoskeletal: Negative. Skin: Negative. Neurological: Negative. All other systems reviewed and are negative. Hematological: Negative. Endocrine: Negative. Allergic/Immunologic: Negative. Objective Physical Exam Constitutional: Appearance: Normal appearance. She is normal weight. Genitourinary: Vaginal cuff intact. Right Adnexa: not tender and no mass present. Left Adnexa: not tender and no mass present. Cervix is not absent. No cervical discharge. Breasts: Breasts are soft. Right: Normal. Left: Normal. HENT: Head: Normocephalic. Cardiovascular: Rate and Rhythm: Normal rate. Pulses: Normal pulses. Pulmonary: Effort: Pulmonary effort is normal. Breath sounds: Normal breath sounds. Abdominal: Palpations: Abdomen is soft. Musculoskeletal: General: Normal range of motion. Neurological: General: No focal deficit present. Mental Status: She is alert and oriented to person, place, and time. Psychiatric: Mood and Affect: Mood normal. Behavior: Behavior normal. Thought Content: Thought content normal. Judgment: Judgment normal. Vitals and nursing note reviewed. Vitals: Estimated body mass index is 26.4 kg/m as calculated from the following: Height as of 06/11/23: 5' 10 . Weight as of this encounter: 184 lb. BP: 116/74 No LMP recorded. Patient has had an injection. Assessment/Plan Encounter Diagnoses Name Primary? Well woman exam with routine gynecological exam Breast cancer screening by mammogram Patient presents today for an annual exam. Patient states she is doing well and has no complaints. Pap was obtained without difficulty and patient given mammogram order to have scheduled/obtained. Follow Up: Patient is to return in one year for annual unless needed otherwise. Documented by MAGDA Solo on behalf of: MAGDA Solo documented in this encounter [facility] 08-02-2023 History of Present illness Narrative Blessing Wilkins returns to the office today for follow-up for chronic idiopathic urticaria. She has been eating some potass containing foods. She has been having hives a few early in the AM but then they go away. She feels the xolair has been very helpful. She is on cyclosporin 50 mg po BID and has no side effects from this. Her BP has been around 106/70. She has been taking Cetirizine 20 BID. EXAM The patient appears comfortable in the office today. BP is 117/62. Lungs are clear to auscultation bilaterally. The oral mucosa is pink and healthy without any lesions or ulcers. The palate elevates in the midline. The nasal mucosa is pink and healthy. There is no epistaxis mucopus or nasal polyposis noted. The nasal septum is approximately in the midline. The skin is clear of any lesions, excoriations, or erythema. IMPRESSION: Chronic idiopathic urticaria - continue cyclosporin and xolair and Cetirizine. Labs in 3 weeks and follow-up in 4 weeks. Virtual every other appt. documented in this encounter [facility] 07-11-2023 History of Present illness Narrative Images from the original note were not included. [address] [place] [id number] SUBJECTIVE: Patient ID: Blessing Wilkins is a 42 y.o. female. 42 yo WF x 1 week plus with earache x 2 days Pt is on cyclosporine chronically for hives The following portions of the patient's history were reviewed and updated as appropriate: allergies, current medications, past family history, past medical history, past social history, past surgical history and problem list. REVIEW OF SYSTEMS: Review of Systems HENT: Positive for ear pain and sinus pressure. PHYSICAL EXAMINATION: Vitals: 07/11/23 1549 BP: 130/80 BP Site: Left Arm BP Postition: Sitting BP CUFF SIZE: M (9-13 inches) Pulse: 88 Resp: 16 Temp: 36.9 C (98.5 F) TempSrc: Tympanic Weight: 82.6 kg (182 lb) Height: 177.8 cm (5' 10 ) Physical Exam Vitals and nursing note reviewed. Constitutional: Appearance: Normal appearance. HENT: Head: Normocephalic and atraumatic. Ears: Comments: Right TM hyperemic Eyes: Extraocular Movements: Extraocular movements intact. Pupils: Pupils are equal, round, and reactive to light. Cardiovascular: Rate and Rhythm: Normal rate and regular rhythm. Pulses: Normal pulses. Heart sounds: Normal heart sounds. Pulmonary: Effort: Pulmonary effort is normal. Breath sounds: Normal breath sounds. Skin: General: Skin is warm and dry. Neurological: General: No focal deficit present. Mental Status: She is alert and oriented to person, place, and time. Psychiatric: Mood and Affect: Mood normal. Behavior: Behavior normal. ASSESSMENT/PLAN: Blessing was seen today for sinus problem and ear problem. Diagnoses and all orders for this visit: Chronic urticaria Other acute sinusitis, recurrence not specified Acute mucoid otitis media of right ear Other orders - cefDINIR (OMNICEF) 300 mg capsule; Take 1 capsule (300 mg total) by mouth in the morning and 1 capsule (300 mg total) before bedtime. Do all this for 20 days. Follow-up: Cefinir 300mg bid x10d 1 rf documented [facility] this encounter [facility] Subjective Chief complaint: Chief Complaint Patient presents with Right Wrist - Follow-up 08/09/22 Blessing Wilkins is a 41 y.o. year old female presenting for evaluation of TFCC repair (DOS 04/06/2022). At today's visit, she reports she is doing overall very well. She endorses some very intermittent tenderness over the ulnar aspect of the wrist with certain hand movements (putting her purse over her shoulder, turning the steering wheel occasionally). Otherwise, she reports that her strength and range of motion is continuing to progress and return to baseline. She has continued to perform home exercises for her repair. Denies numbness, tingling, and weakness of the bilateral upper extremities. ROS: Denies fevers, chills, and other constitutional symptoms. Denies shortness of breath. Patient History Past Surgical History: Procedure Laterality Date SECTION, LOW TRANSVERSE Past Medical History: Diagnosis Date Osteoarthritis Objective General: Body mass index is 23.82 kg/m???. There were no vitals filed for this visit. No acute distress, comfortable Respiratory: Unlabored breathing with normal rate, no cough Cardiovascular: Warm well perfused extremities Psych: Appropriate mood behavior The incision site is healing well. There is no erythema, drainage or signs of infection. Tenderness is mild and localized to the surgical site. Sensation is present to light touch, and returned to normal. Range of motion is appropriate for this time. There is no significant pain with forced supination, but there is with ulnar loading. Imaging: No new Assessment/Plan Blessing Wilkins is a 41 y.o. 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 GC: I personally saw this patient on the day of the encounter, performed the lópez portion(s) of the service and participated in the management and confirm the resident's documentation. Please note there may be an additional personal documentation from me. [facility] 06-28-2022 Note Orthopedic Surgery 04/06/2022 Arthroscopy, Wrist, Tfcc Repair - Right Blessing Wilkins comes in for a post-operative visit after having a right TFCC repair done on 04/06/2022. Today she is doing well and has no unexpected complaints. She was making gains, but has had some pain at the surgical site the last few days. Physical Exam: The incision site is healing well. There is no erythema, drainage or signs of infection. Tenderness is mild and localized to the surgical site. Sensation is present present to light touch, and returned to normal. Range of motion is appropriate for this time. There is no significant pain with forced supination, but there is with ulnar loading. Assessment: Blessing Wilkins is a 41 y.o. 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 We did talk about OT but she would prefer not at this time. We will see her back in 6 wks. [facility] 05-17-2022 Note - Orthopedic Surgery 04/06/2022 Arthroscopy, Wrist, Tfcc Repair - Right Blessing Wilkins comes in for a post-operative visit after having a right TFCC repair done on 04/06/22. She is now about 6 wks out from surgery. Today she is doing well and has no unexpected complaints. Her sensation is improving on the ulnar aspect of the hand. She has started doing some gentle ROM, but notices pain if she pushes it. Physical Exam: The incision site is healing well. There is no erythema, drainage or signs of infection. Tenderness is mild and localized to the surgical site. Sensation is present present to light touch, but still slightly diminished in the ulnar distribution. Range of motion is appropriate for this time. Assessment: Blessing Wilkins is a 41 y.o. year old female who is 6 wks out from a TFCC repair. Plan: I am going to have her continue to wean out of the splint. I showed her how to do isometric wrist exercises. I would like to see her back in 6 wks to check her progress. [facility] 04-19-2022 Note Orthopedic Surgery Subjective Chief complaint: Chief Complaint Patient presents with Right Wrist - Post-op, Pain 04/19/22 Blessing Wilkins is a 41 y.o. year old female presenting for evaluation of Right wrist TFCC repair. Patient is doing overall well Patient History Past Surgical History: Procedure Laterality Date SECTION, LOW TRANSVERSE Past Medical History: Diagnosis Date Osteoarthritis Objective examination of the right wrist reveals surgical incisions clean dry and intact. No surrounding ecchymosis erythema or drainage. Minimal tenderness palpation. Imaging personally reviewed: None taken today. Assessment/Plan Blessing Wilkins is a 41 y.o. 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 Office Visit Attestation GC: I personally saw this patient on the day of the encounter, performed the lópez portion(s) of the service and participated in the management and confirm the resident's documentation. Please note there may be an additional personal documentation from me. [facility] 04-06-2022 Note PT DOING WELL. 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]) Surgeons: Gaston Ko MD Responsible Provider: Jessica Farmer MD Anesthesia Type: general, regional ASA Status: 2 Anesthesia Type: general, regional Vitals Value Taken Time BP 111/72 04/06/22 0937 Temp 36.2 ???C (97.2 ???F) 04/06/22939 Pulse 65 04/06/2240 Resp 14 04/06/22939 SpO2 100 % 04/06/22939 Anesthesia Post Evaluation Patient location during evaluation: bedside Patient participation: complete - patient participated Level of consciousness: awake and alert Pain score: 0 Pain management: adequate Airway patency: patent Cardiovascular status: hemodynamically stable Respiratory status: acceptable and room air No notable events documented. [facility] 04-06-2022 Note Peripheral Block Patient location during procedure: pre-op Start time: 04/06/2022 8:10 AM End time: 04/06/2022 8:15 AM Reason for block: primary anesthetic and at surgeon's request Staffing Performed: anesthesiologist Anesthesiologist: Jessica Farmer MD Preanesthetic Checklist Completed: patient identified, IV checked, site marked, risks and benefits discussed, surgical consent, monitors and equipment checked, pre-op evaluation and timeout performed Peripheral Block Patient position: supine Prep: ChloraPrep Patient monitoring: heart rate and continuous pulse ox Block type: axillary Laterality: right Injection technique: single-shot Guidance: ultrasound guided Needle Needle type: short-bevel Needle gauge: 22 G Needle length: 2 in Needle localization: ultrasound guidance Test dose: negative Medications Administered Bupivacaine HCl (Marcaine) 0.5 % (5 mg/mL) injection, 75 mg midazolam (VERSED) IV, 2 mg fentaNYL (SUBLIMAZE) IV, 25 mcg Assessment Injection assessment: negative aspiration for heme, no paresthesia on injection, incremental injection and local visualized surrounding nerve on ultrasound Paresthesia pain: none Heart rate change: no Slow fractionated injection: no [facility] 04-06-2022 Note Patient: Blessing castillo Procedure Information Date/Time: 04/06/22814 Procedure: ARTHROSCOPY, WRIST (Right: Wrist) Location: [facility] OR [address] [place] [address] OR Surgeons: Gaston Ko MD Relevant Problems No relevant active problems Clinical information reviewed: Tobacco Allergies Meds Med Hx Surg Hx OB Status Fam Hx Soc Hx Physical Exam Airway Mallampati: II TM distance: >3 FB Neck ROM: full Cardiovascular - normal exam Dental Pulmonary - normal exam Abdominal - normal exam Other findings: Past Medical History: No date: Osteoarthritis Past Surgical History: No date: SECTION, LOW TRANSVERSE There were no vitals filed for this visit. Anesthesia Plan ASA 2 general and regional (Ax block. GEN if block incomplete) intravenous induction Postoperative administration of opioids is intended. Anesthetic plan and risks discussed with patient. Use of blood products discussed with patient who consented to blood products. Additional Equipment Requests [facility] Evaluation note Diagnosis Chronic idiopathic urticaria- Primary Idiopathic urticaria [facility] Diagnosis Chronic idiopathic urticaria Idiopathic urticaria Encounter for fdc current cyclosporin A therapy Well woman exam with routine gynecological exam Routine gynecological examination [facility]* Diagnosis Well woman exam with routine gynecological exam Routine gynecological examination Breast cancer screening by mammogram [facility]* Diagnosis Randolph's disease- Primary Chronic lymphocytic thyroiditis [facility] Diagnosis Chronic idiopathic urticaria Idiopathic urticaria documented in this [facility]* Diagnosis Chronic idiopathic urticaria- Primary Idiopathic urticaria [facility]* Diagnosis Encounter for surveillance of injectable contraceptive Depo-Provera contraceptive status Encounter for management and injection of depo-Provera [facility]* Diagnosis Anxiety- Primary Anxiety state, unspecified Dysphonia [facility] in this [facility] Diagnosis Chronic idiopathic urticaria- Primary Idiopathic urticaria documented [facility]* Diagnosis Chronic idiopathic urticaria- Primary Idiopathic urticaria documented in this encounter [facility]* Diagnosis Chronic urticaria- Primary Other specified urticaria Other acute sinusitis, recurrence not specified Acute mucoid otitis media of right ear documented in this encounter [facility] on filedocumented in this encounter [facility] filedocumented in this encounter [facility]* Attachments The following attachments cannot be sent through Care Everywhere. * Laryngeal dystonia ([place]) [facility] Purpose Family History No Family History Records FoundNo Family History Records FoundNo Family History Records FoundNo Family History Records FoundNo Family History Records FoundNo Family History Records Found Advance Directives No Advanced Directives Records FoundNo Advanced Directives Records FoundNo Advanced Directives Records FoundNo Advanced Directives Records FoundNo Advanced Directives Records FoundNo Advanced Directives Records Found Additional Source Comments INFORMATION SOURCE (unrecogn ized section and content) DATE CREATED AUTHOR 01/28/2022 [facility] DATE CREATED AUTHOR AUTHOR'S ORGANIZ ATION 07/19/[address] [facility] DATE CREATED AUTHOR AUTHOR'S ORGANIZ ATION 08/10/2022 [facility] DATE CREATED AUTHOR AUTHOR'S ORGANIZ ATION 04/20/2024 [facility] DATE CREATED AUTHOR AUTHOR'S ORGANIZ ATION 05/27/2024 [facility] DATE CREATED AUTHOR AUTHOR'S ORGANIZ ATION 07/21/2024 [facility] Care Teams (unrecognized sec tion and content) [employer] Relationship Specialty Start Date End Date Junior Quintanilla MD [address] [address] PCP - General 12/22/22 [employer] Relationship Specialty Start Date End Date Junior Quintanilla MD [address] [place] [address] PCP - General 12/22/22 [employer] Relationship Specialty Start Date End Date Junior Quintanilla MD [address] [place] [address] PCP - General 12/22/22 [employer] Relationship Specialty Start Date End Date Junior Quintanilla MD [address] [place] [address] PCP - General Family Medicine 02/27/17 [employer] Relationship Specialty Start Date End Date Junior Quintanilla MD [address] [place] [address] PCP - General Family Medicine 02/27/17 [employer] Relationship Specialty Start Date End Date Junior Quintanilla MD [address] [place] [address] PCP - General 12/22/22 [employer] Relationship Specialty Start Date End Date Junior Quintanilla MD [address] [place] [address] PCP - General 12/22/22 [employer] Relationship Specialty Start Date End Date Junior Quintanilla MD [address] [place] [address] PCP - General 12/22/22 [employer] Relationship Specialty Start Date End Date Junior Quintanilla MD [address] [place] [address] PCP - General Family Medicine 11/11/23 [employer] Relationship Specialty Start Date End Date Junior Quintanilla MD [address] [place], [place] [id number] PCP - General Family Medicine 02/27/17 Reason for Visit (unrecogniz ed section and content) Reason Comments Med Refill Reason Comments Well Women Visit Reason Onset Date Comments Med Refill 10/02/2023 Reason Comments Depo injection Reason Comments Routine Check up Reason Comments Sinus Problem Ear Problem FOR RECORDS PERTAINING TO PATIENTS WHO ARE OR HAVE BEEN ENROLLED IN A CHEMICAL DEPENDENCY/SUBSTANCEABUSE PROGRAM, SOME INFORMATION MAY BE OMITTED. This clinical summary was aggregated from multiple sources. Caution should be exercised in using it in the provision of clinical care. This summary normalizes information from multiple sources, and as a consequence, information in this document may materially change the coding, format and clinical context of patient data. In addition, data may be omitted in some cases. CLINICAL DECISIONS SHOULD BE BASED ON THE PRIMARY CLINICAL RECORDS. [employer] provides no warranty or guarantee of the accuracy or completeness of information in this document.
== END 2024-08-11 22:07 | disposition home or self-care (01) ==
LOC: LAB 22:06
PROVIDERS: Visit Provider Physician Assistant
DX: Z01.419 Encounter for gynecological examination (general) (routine) without abnormal findings (principal)
CPT/HCPCS: 87624; 88175